=== PATIENT | female | born 1985 | race Caucasian/White ===

== ENCOUNTER 2017-05-21 00:47 | Emergency (ER) | payer OTHER ==
[~2017-05-21] VITALS: Ht 162.6 cm; Wt 49.5 kg
[2017-05-21] MEDS ORDERED: ALBU17IN2 INH (01:02)
[2017-05-21] MEDS ORDERED: SERT25TA PO (01:02)
[2017-05-21 02:50] VITALS: BP 137/67
== END 2017-05-21 02:53 | disposition home or self-care (01) ==
LOC: M ED 00:47
DX: S60.00XA Contusion of unspecified finger without damage to nail, initial encounter (principal); W22.8XXA Striking against or struck by other objects, initial encounter; Y92.099 Unspecified place in other non-institutional residence as the place of occurrence of the external cause; Y93.9 Activity, unspecified; Y99.9 Unspecified external cause status; Z79.899 Other long term (current) drug therapy; Z91.030 Bee allergy status; Z88.1 Allergy status to other antibiotic agents; Z91.018 Allergy to other foods

== ENCOUNTER → 2017-07-11 | Outpatient (CLI) | payer OTHER ==
[~2017-07-11] MED LIST: ALBU17IN2 INH; SERT25TA PO
[2017-07-11 12:13] LABS: ADD MANUAL DIFFER YES; MEAN CORPUSCULAR HEMOGLOBIN 21.2 pg (27.0-33.0); MEAN CORPUSCULAR HGB CONC 29.3 g/dl (32.0-36.5); MEAN CORPUSCULAR VOLUME 72.2 fl (80.0-96.0); PLATELET COUNT, AUTOMATED 195 k/mm3 (150-450); RED CELL DISTRIBUTION WIDTH 14.9 % (11.5-14.5); WHITE BLOOD COUNT 3.4 K/mm3 (4.0-10.0)
[2017-07-11 12:37] LABS: ALBUMIN 3.6 GM/DL (3.2-5.2); ALBUMIN/GLOBULIN RATIO 1.24 (1.00-1.93); ALKALINE PHOSPHATASE 65 U/L (45-117); ALT/SGPT 12 U/L (12-78); ANION GAP 8 MEQ/L (8-16); AST/SGOT 7 U/L (15-37); BILIRUBIN,TOTAL 0.2 MG/DL (0.2-1.0); BLOOD UREA NITROGEN 6 MG/DL (7-18); CALCIUM LEVEL 8.2 MG/DL (8.5-10.1); CARBON DIOXIDE LEVEL 25 MEQ/L (21-32); CHLORIDE LEVEL 109 MEQ/L (98-107); CHOLESTEROL LEVEL 150 MG/DL (<200); CREATININE FOR GFR 0.55 MG/DL (0.55-1.02); GLOMERULAR FILTRATION RATE > 60.0 (>60); GLUCOSE, FASTING 85 MG/DL (70-105); POTASSIUM SERUM 3.6 MEQ/L (3.5-5.1); SODIUM LEVEL 142 MEQ/L (136-145); TOTAL PROTEIN 6.5 GM/DL (6.4-8.2); TRIGLYCERIDES LEVEL 100 MG/DL (<150)
[2017-07-11 13:03] LABS: BASOPHILS 2 % (0-4); EOSINOPHILS 1 % (0-5)
[2017-07-11 13:04] LABS: ANISOCYTOSIS 2+; HYPOCHROMASIA 2+; MICROCYTOSIS 1+; OVALOCYTES 1+; POIKILOCYTOSIS 1+
== END ==
LOC: M LAB 11:24
PROVIDERS: ATTEND Nurse Practitioner Family
DX: Z72.0 Tobacco use (principal)

== ENCOUNTER 2018-02-18 23:48 | Emergency (ER) | payer OTHER ==
[2018-02-19 00:45] LABS: BASO % 1.2 % (0.0-1.0); EOS % 1.2 % (0.0-3.0); HEMATOCRIT 29.9 % (36.0-47.0); IMMATURE GRANULOCYTE % 0.3 % (0-3.0); LYMPH # 1.2 10^3/uL (1.5-4.5); LYMPH % 36.5 % (24.0-44.0); MEAN CORPUSCULAR HEMOGLOBIN 20.5 pg (27.0-33.0); MEAN CORPUSCULAR HGB CONC 30.1 g/dl (32.0-36.5); MONO # 0.3 10^3/uL (0.0-0.8); MONO % 9.3 % (0.0-5.0); NEUTROPHILS # 1.7 10^3/uL (1.8-7.7); NEUTROPHILS % 51.5 % (36.0-66.0); PLATELET COUNT, AUTOMATED 226 10^3/uL (150-450); RED CELL DISTRIBUTION WIDTH 16.6 % (11.5-14.5); WHITE BLOOD COUNT 3.3 10^3/uL (4.0-10.0)
[2018-02-19 00:57] LABS: PROTHROMBIN TIME 14.3 SECONDS (12.4-14.5)
[2018-02-19 00:58] LABS: PARTIAL THROMBOPLASTIN TIME 29.8 SECONDS (26.8-37.9)
[2018-02-19 01:00] LABS: CONTROL LINE HCG INT CTR LINE PRESENT; HCG, SERUM QUALITATIVE NEGATIVE (NEGATIVE)
[2018-02-19 01:10] LABS: ANION GAP 11 MEQ/L (8-16); BLOOD UREA NITROGEN 4 MG/DL (7-18); CALCIUM LEVEL 9.1 MG/DL (8.5-10.1); CARBON DIOXIDE LEVEL 24 MEQ/L (21-32); CHLORIDE LEVEL 109 MEQ/L (98-107); CPK CREATINE PHOSPHOKINASE 43 U/L (26-192); CREATININE FOR GFR 0.67 MG/DL (0.55-1.30); GLOMERULAR FILTRATION RATE > 60.0 (>60); GLUCOSE, FASTING 102 MG/DL (70-100); SODIUM LEVEL 144 MEQ/L (136-145); TROPONIN I < 0.02 NG/ML (< 0.10)
[2018-02-19 01:11] LABS: CK-MB VALUE MASS < 1.0 NG/ML (<3.6); MB/CK RELATIVE INDEX 2.32 (< OR =4)
[2018-02-19] MEDS: METOCLOPRAMIDE INJ 10MG/2ML VIAL (J2765) IV (01:53)
[2018-02-19] MEDS: POTASSIUM CHLORIDE 10 MEQ SR TABLET PO (01:54)
[2018-02-19] MEDS: NS 1,000 ML IV (01:54)
== END 2018-02-19 06:14 | disposition home or self-care (01) ==
LOC: M ED 23:48
DX: R20.0 Anesthesia of skin (principal); J45.909 Unspecified asthma, uncomplicated; F17.200 Nicotine dependence, unspecified, uncomplicated; Z91.030 Bee allergy status; Z88.8 Allergy status to other drugs, medicaments and biological substances; Z88.1 Allergy status to other antibiotic agents; Z91.018 Allergy to other foods
CPT/HCPCS: J2765

== ENCOUNTER 2018-04-05 22:23 | Emergency (ER) | payer OTHER ==
[2018-04-05] MEDS: ONDANSETRON 4 MG ORAL DISINTEGRATING TAB (Q0162 PER 1MG) PO (23:28)
== END 2018-04-06 00:32 | disposition home or self-care (01) ==
LOC: M ED 04-06 00:32
DX: F41.9 Anxiety disorder, unspecified (principal); R11.0 Nausea; F43.10 Post-traumatic stress disorder, unspecified; F17.200 Nicotine dependence, unspecified, uncomplicated
CPT/HCPCS: Q0162

== ENCOUNTER 2018-04-08 18:53 | Emergency (ER) | payer OTHER ==
[2018-04-08] MEDS: hydrOXYzine 50 MG TAB PO (20:37)
[2018-04-08 21:34] LABS: ANION GAP 5 MEQ/L (8-16); BLOOD UREA NITROGEN 7 MG/DL (7-18); CALCIUM LEVEL 8.8 MG/DL (8.5-10.1); CARBON DIOXIDE LEVEL 25 MEQ/L (21-32); CHLORIDE LEVEL 109 MEQ/L (98-107); CREATININE FOR GFR 0.63 MG/DL (0.55-1.30); GLOMERULAR FILTRATION RATE > 60.0 (>60); GLUCOSE, FASTING 100 MG/DL (70-100); SODIUM LEVEL 139 MEQ/L (136-145)
== END 2018-04-08 22:53 | disposition home or self-care (01) ==
LOC: M ED 18:53
DX: F41.1 Generalized anxiety disorder (principal); Z72.0 Tobacco use; Z79.899 Other long term (current) drug therapy; Z88.8 Allergy status to other drugs, medicaments and biological substances; Z88.1 Allergy status to other antibiotic agents; Z91.030 Bee allergy status; Z91.018 Allergy to other foods
CPT/HCPCS: 80048

== ENCOUNTER 2018-05-31 15:49 | Emergency (ER) | payer OTHER ==
[2018-05-31] MEDS: METOCLOPRAMIDE INJ 10MG/2ML VIAL (J2765) IV (16:45)
[2018-05-31] MEDS ORDERED: PROHANCE 279.3MG/ML 5ML VIAL (A9576) As Ordered (18:00)
== END 2018-05-31 21:25 | disposition home or self-care (01) ==
LOC: M ED 15:49
DX: G43.909 Migraine, unspecified, not intractable, without status migrainosus (principal); J44.9 Chronic obstructive pulmonary disease, unspecified; F43.10 Post-traumatic stress disorder, unspecified; F41.9 Anxiety disorder, unspecified; Z88.1 Allergy status to other antibiotic agents; Z88.8 Allergy status to other drugs, medicaments and biological substances; Z91.018 Allergy to other foods; Z91.030 Bee allergy status; F17.210 Nicotine dependence, cigarettes, uncomplicated
CPT/HCPCS: A9576

== ENCOUNTER 2018-07-09 13:15 | Emergency (ER) | payer OTHER | END 2018-07-09 13:56 | disposition home or self-care (01) | LOC: M ED 13:15 | DX: R51 Headache (principal); J30.9 Allergic rhinitis, unspecified; F32.9 Major depressive disorder, single episode, unspecified; G43.909 Migraine, unspecified, not intractable, without status migrainosus; F17.210 Nicotine dependence, cigarettes, uncomplicated; Z88.1 Allergy status to other antibiotic agents; Z88.5 Allergy status to narcotic agent; Z91.030 Bee allergy status | CPT/HCPCS: 99282 ==

== ENCOUNTER → 2018-07-17 | Outpatient (CLI) | payer OTHER ==
[2018-07-17 14:56] LABS: BASO % 0.7 % (0.0-1.0); EOS % 0.7 % (0.0-3.0); HEMATOCRIT 30.8 % (36.0-47.0); HEMOGLOBIN 8.8 g/dl (12.0-15.5); IMMATURE GRANULOCYTE % 0.5 % (0-3.0); LYMPH # 1.6 10^3/uL (1.5-4.5); LYMPH % 36.5 % (24.0-44.0); MEAN CORPUSCULAR HEMOGLOBIN 18.9 pg (27.0-33.0); MEAN CORPUSCULAR HGB CONC 28.6 g/dl (32.0-36.5); MEAN CORPUSCULAR VOLUME 66.2 fl (80.0-96.0); MONO # 0.5 10^3/uL (0.0-0.8); NEUTROPHILS # 2.2 10^3/uL (1.8-7.7); NEUTROPHILS % 50.6 % (36.0-66.0); PLATELET COUNT, AUTOMATED 227 10^3/uL (150-450); RED BLOOD COUNT 4.65 10^6/uL (4.00-5.40); RED CELL DISTRIBUTION WIDTH 17.2 % (11.5-14.5); WHITE BLOOD COUNT 4.4 10^3/uL (4.0-10.0)
[2018-07-17 15:26] LABS: ALBUMIN/GLOBULIN RATIO 1.18 (1.00-1.93); ALKALINE PHOSPHATASE 83 U/L (45-117); ALT/SGPT 18 U/L (12-78); ANION GAP 9 MEQ/L (8-16); AST/SGOT 11 U/L (7-37); BILIRUBIN,TOTAL 0.3 MG/DL (0.2-1.0); BLOOD UREA NITROGEN 6 MG/DL (7-18); CARBON DIOXIDE LEVEL 26 MEQ/L (21-32); CHLORIDE LEVEL 105 MEQ/L (98-107); CHOLESTEROL LEVEL 173 MG/DL (<200); CHOLESTEROL RISK RATIO 2.932 (<5); CREATININE FOR GFR 0.58 MG/DL (0.55-1.30); FERRITIN 2 NG/ML (8-252); FOLATE 5.4 NG/ML; FREE T4 0.97 NG/DL (0.76-1.46); GLOMERULAR FILTRATION RATE > 60.0 (>60); GLUCOSE, FASTING 81 MG/DL (70-100); HDL CHOLESTEROL 59 MG/DL (>40); IRON (FE) 20 UG/DL (50-170); LDL CHOLESTEROL 96 MG/DL (<100); NON-HDL-C 114 MG/DL; PERCENT SATURATION 3.8 % (13.2-45.0); POTASSIUM SERUM 3.8 MEQ/L (3.5-5.1); SODIUM LEVEL 140 MEQ/L (136-145); THYROID STIMULATING HORMONE 0.944 uIU/ML (0.358-3.740); TOTAL IRON BINDING CAPACITY 526 UG/DL (250-450); TOTAL PROTEIN 7.4 GM/DL (6.4-8.2); TRIGLYCERIDES LEVEL 89 MG/DL (<150)
[2018-07-20 00:07] LABS: D001-IgE D pteronyssinus <0.10 kU/L (Class 0); E001-IgE Cat Epith/Dander < 0.10 kU/L (Class 0); E005-IgE Dog Dander < 0.10 kU/L (Class 0); G002-IgE Bermuda Grass < 0.10 kU/L (Class 0); G008-IgE Kentucky Bluegrass < 0.10 kU/L (Class 0); M001-IgE Penicillium chrysogen < 0.10 kU/L (Class 0); M002 IgE Cladosporium herbaru < 0.10 kU/L (Class 0); M003 IgE Aspergillus fumigatu < 0.10 kU/L (Class 0); M006-IgE Alternaria alternata < 0.10 kU/L (Class 0); T001-IgE Maple/Box Elder < 0.10 kU/L (Class 0); T003-IgE Common Silver Birch < 0.10 kU/L (Class 0); T006-IgE Cedar, Mountain < 0.10 kU/L (Class 0); T007-IgE Oak, White < 0.10 kU/L (Class 0); T008-IgE Elm, American < 0.10 kU/L (Class 0); T015-IgE Ash, White < 0.10 kU/L (Class 0); T041-IgE Hickory, White < 0.10 kU/L (Class 0); T070-IgE White Mulberry < 0.10 kU/L (Class 0); W001-IgE Ragweed, Short < 0.10 kU/L (Class 0); W009-IgE Plantain, English < 0.10 kU/L (Class 0); W014-IgE Pigweed, Rough < 0.10 kU/L (Class 0); W018-IgE Sheep Sorrel < 0.10 kU/L (Class 0)
== END ==
LOC: M LAB 14:06
DX: J45.20 Mild intermittent asthma, uncomplicated (principal); J30.9 Allergic rhinitis, unspecified; D64.9 Anemia, unspecified; E87.6 Hypokalemia; F41.9 Anxiety disorder, unspecified; Z13.6 Encounter for screening for cardiovascular disorders; R20.0 Anesthesia of skin
CPT/HCPCS: 82746

== ENCOUNTER 2018-07-20 18:11 | Emergency (ER) | payer OTHER ==
[2018-07-20] MEDS: BENZONATATE 100 MG CAP PO (21:00)
== END 2018-07-20 21:08 | disposition home or self-care (01) ==
LOC: M ED 18:11
DX: J20.8 Acute bronchitis due to other specified organisms (principal); J45.909 Unspecified asthma, uncomplicated; E07.9 Disorder of thyroid, unspecified; G43.909 Migraine, unspecified, not intractable, without status migrainosus; F17.210 Nicotine dependence, cigarettes, uncomplicated
CPT/HCPCS: 99282

== ENCOUNTER 2018-10-19 05:10 | Emergency (ER) | payer OTHER | END 2018-10-19 06:30 | disposition home or self-care (01) | LOC: M ED 05:10 | DX: J31.0 Chronic rhinitis (principal); F17.200 Nicotine dependence, unspecified, uncomplicated; F32.9 Major depressive disorder, single episode, unspecified; G43.909 Migraine, unspecified, not intractable, without status migrainosus | CPT/HCPCS: 99282 ==

== ENCOUNTER → 2018-12-04 | Outpatient (REF) | payer OTHER ==
[~2018-12-04] MED LIST changes: +ACE65ERTAB PO; +AZIT-12; +CIPR-249 PO; +EPIP0.3I2 IM; +FERR325T3 PO; +FLON1SPR NARES; +HYDR50TA70 PO; +IBUP-1022 PO; +MIRA3350 PO; +MUCI600T37 PO; +PROP10TA56 PO; +SERT50TA PO; +SUDA30TA8 PO; +SUMA25TA3; +TESS100C PO; +ZOFR4TAB14 PO
[2018-12-04 16:19] LABS: BASO % 0.5 % (0.0-1.0); EOS # 0.1 10^3/uL (0.0-0.50); EOS % 1.8 % (0.0-3.0); HEMATOCRIT 33.3 % (36.0-47.0); HEMOGLOBIN 9.6 g/dl (12.0-15.5); LYMPH # 1.3 10^3/uL (1.5-4.5); LYMPH % 32.8 % (24.0-44.0); MEAN CORPUSCULAR HEMOGLOBIN 20.3 pg (27.0-33.0); MEAN CORPUSCULAR HGB CONC 28.8 g/dl (32.0-36.5); MEAN CORPUSCULAR VOLUME 70.3 fl (80.0-96.0); MONO # 0.4 10^3/uL (0.0-0.8); MONO % 11.1 % (0.0-5.0); NEUTROPHILS # 2.1 10^3/uL (1.8-7.7); NEUTROPHILS % 53.5 % (36.0-66.0); PLATELET COUNT, AUTOMATED 203 10^3/uL (150-450); RED BLOOD COUNT 4.74 10^6/uL (4.00-5.40); WHITE BLOOD COUNT 3.9 10^3/uL (4.0-10.0)
[2018-12-04 16:28] LABS: ALBUMIN 4.1 GM/DL (3.2-5.2); ALT/SGPT 16 U/L (12-78); BILIRUBIN,TOTAL 0.2 MG/DL (0.2-1.0); BLOOD UREA NITROGEN 6 MG/DL (7-18); CALCIUM LEVEL 8.9 MG/DL (8.5-10.1); CARBON DIOXIDE LEVEL 27 MEQ/L (21-32); CHLORIDE LEVEL 105 MEQ/L (98-107); CREATININE FOR GFR 0.63 MG/DL (0.55-1.30); FERRITIN 2 NG/ML (8-252); GLOMERULAR FILTRATION RATE > 60.0 (>60); GLUCOSE, FASTING 96 MG/DL (70-100); IRON (FE) 18 UG/DL (50-170); PERCENT SATURATION 3.6 % (13.2-45.0); POTASSIUM SERUM 3.7 MEQ/L (3.5-5.1); SODIUM LEVEL 139 MEQ/L (136-145); TOTAL IRON BINDING CAPACITY 500 UG/DL (250-450); TOTAL PROTEIN 7.1 GM/DL (6.4-8.2)
== END ==
LOC: M SFHCPLAZ 14:05
PROVIDERS: ATTEND Physician Assistant Medical
DX: D64.9 Anemia, unspecified (principal); E87.6 Hypokalemia

== ENCOUNTER 2019-03-22 22:09 | Emergency (ER) | payer OTHER ==
[~2019-03-22] VITALS: Ht 162.6 cm; Wt 50.9 kg
[~2019-03-22 22:09] MED LIST changes: +SERT-141 PO; -SERT25TA PO; +SERT25TA85 PO; -SERT50TA PO
[2019-03-22] MEDS ORDERED: GABA-1171 PO (22:20)
[2019-03-23] MEDS ORDERED: PRED20TA PO (00:33)
[2019-03-23 00:45] VITALS: BP 135/69
[2019-03-23] MEDS ORDERED: MAGNESIUM CITRATE 300 ML BTL PO ONE (00:45)
[2019-03-23] MEDS ORDERED: PROAAER10 INH (05:36)
[2019-03-23] MEDS ORDERED: EPIP0.3I2 IM (05:36)
[2019-03-23] MEDS ORDERED: FLUT50SP33 (05:36)
--- NOTE | 2019-03-23 08:01 | REP ---
Clinical: Constipation. Technique: Two supine views of the abdomen and pelvis. Findings: Bowel gas pattern is nonspecific although mild fecal stasis cannot be excluded. No organomegaly. No abnormal calcifications. Skeletal structures are intact. Fiche clips identified in the pelvis along with phleboliths. Impression: Mild fecal stasis. Electronically Signed by Vitor Oconnor MD 03/23/2019 07:52 A
[2019-03-24] MEDS ORDERED: FERR325T18 PO (16:55)
== END 2019-03-23 00:47 | disposition home or self-care (01) ==
LOC: M ED 22:09
DX: G35 Multiple sclerosis (principal); K59.00 Constipation, unspecified; J45.909 Unspecified asthma, uncomplicated; F17.200 Nicotine dependence, unspecified, uncomplicated; Z91.030 Bee allergy status

== ENCOUNTER 2019-03-23 02:49 | Observation (INO) | payer OTHER ==
[~2019-03-23] VITALS: Ht 162.6 cm; Wt 50.9 kg
[~2019-03-23 02:49] MED LIST changes: +GABA-1171 PO; +PRED20TA PO
[2019-03-23 03:53] LABS: BASO % 0.5 % (0.0-1.0); EOS % 0.5 % (0.0-3.0); HEMATOCRIT 28.7 % (36.0-47.0); HEMOGLOBIN 8.6 g/dl (12.0-15.5); LYMPH # 0.8 10^3/uL (1.5-4.5); LYMPH % 12.8 % (24.0-44.0); MEAN CORPUSCULAR HEMOGLOBIN 21.2 pg (27.0-33.0); MEAN CORPUSCULAR VOLUME 70.9 fl (80.0-96.0); MONO # 0.5 10^3/uL (0.0-0.8); MONO % 8.3 % (0.0-5.0); NEUTROPHILS % 77.6 % (36.0-66.0); PLATELET COUNT, AUTOMATED 217 10^3/uL (150-450); RED BLOOD COUNT 4.05 10^6/uL (4.00-5.40); WHITE BLOOD COUNT 6.5 10^3/uL (4.0-10.0)
[2019-03-23 04:01] LABS: INR 1.04; PROTHROMBIN TIME 13.7 SECONDS (12.1-14.4)
[2019-03-23 04:02] LABS: PARTIAL THROMBOPLASTIN TIME 30.3 SECONDS (25.4-37.6)
[2019-03-23 04:11] LABS: BLOOD UREA NITROGEN 9 MG/DL (7-18); CALCIUM LEVEL 9.4 MG/DL (8.5-10.1); CARBON DIOXIDE LEVEL 25 MEQ/L (21-32); CHLORIDE LEVEL 108 MEQ/L (98-107); CPK CREATINE PHOSPHOKINASE 52 U/L (26-192); GLOMERULAR FILTRATION RATE > 60.0 (>60); GLUCOSE, FASTING 112 MG/DL (70-100); MB/CK RELATIVE INDEX 3.85 (< OR =4); POTASSIUM SERUM 3.5 MEQ/L (3.5-5.1); SODIUM LEVEL 141 MEQ/L (136-145); TROPONIN I < 0.02 NG/ML (< 0.10)
--- NOTE | 2019-03-23 04:41 | REPVR ---
EXAM: CT Head Without Contrast EXAM DATE/TIME: 03/23/2019 3:11 AM CLINICAL HISTORY: 33 years old, female; Signs and symptoms; Other: CVA? ; Additional info: CVA - nursing interventions must not delay CT TECHNIQUE: Imaging protocol: Axial computed tomography images of the head without contrast. Radiation optimization: All CT scans at this facility use at least one of these dose optimization techniques: automated exposure control; mA and/or kV adjustment per patient size (includes targeted exams where dose is matched to clinical indication); or iterative reconstruction. COMPARISON: CT Head without contrast 02/19/2018 12:14 AM FINDINGS: Brain: Normal. No hemorrhage. Unremarkable white matter. No mass effect. Ventricles: Normal. No ventriculomegaly. Bones/joints: Unremarkable. No acute fracture. Sinuses: Visualized sinuses are unremarkable. No fluid levels. Mastoid air cells: Visualized mastoid air cells are well aerated. No mastoid effusion. Soft tissues: Unremarkable. IMPRESSION: No acute intracranial abnormality. Electronically signed by: Shell Sheridan On 03/23/2019 04:41:05 AM
[2019-03-23] MEDS ORDERED: EPIP0.3I2 IM (05:36)
[2019-03-23] MEDS ORDERED: FLUT50SP33 (05:36)
[2019-03-23] MEDS ORDERED: PROAAER10 INH (05:36)
[2019-03-23] MEDS ORDERED: LORazepam 2 MG/ML VIAL (J2060) IV STA (06:26)
--- NOTE | 2019-03-23 07:33 | ECGEPIP ---
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
--- NOTE | 2019-03-23 08:03 | REP ---
Clinical: Possible acute cerebrovascular accident . Comparison: 07/21/2012 . Findings: The mediastinum and cardiac silhouette are stable and within normal limits for portable technique. The lung obando are clear without acute consolidation, effusion, or pneumothorax. Skeletal structures are intact. Impression: No acute cardiopulmonary process appreciated. Electronically Signed by Vitor Oconnor MD 03/23/2019 07:55 A
[2019-03-23] MEDS ORDERED: PROHANCE 279.3MG/ML 5ML VIAL (A9576) As Ordered ONE (10:39)
--- NOTE | 2019-03-23 12:31 | REP ---
CERVICAL SPINE WITHOUT AND WITH CONTRAST: HISTORY: Left arm and leg numbness. CONTRAST: ProHance 10 mL COMPARISON: 05/31/2018 A disc bulge is present at the C6-7 level. There is minimal effacement of the thecal sac without spinal cord compression. The C6 neural foramina are patent. There is no other disc bulge or herniation. The remaining neural foramina are patent. The spinal cord is normal in signal intensity. There is no abnormal enhancement. The cerebellar tonsils extend 5 mm inferior through the foramen magnum consistent with cerebellar tonsillar ectopia. There is no syrinx. IMPRESSION: 1. Disc bulge at the C6-7 level without spinal cord compression. 2. Cerebellar tonsillar ectopia. There is no change compared to the previous study. Electronically Signed by Vitaly Contreras MD 03/23/2019 12:37 P
--- NOTE | 2019-03-23 12:34 | REP ---
MR THORACIC SPINE WITHOUT AND WITH CONTRAST: HISTORY: Left arm and leg numbness. CONTRAST: ProHance 10 mL There is no disc bulge or herniation. The spinal canal and neural foramina are patent. The spinal cord is normal in signal intensity. There is no abnormal enhancement. Normal signal intensity is present in the thoracic vertebral bodies. IMPRESSION: There is no disc bulge or herniation. Electronically Signed by Vitaly Contreras MD 03/23/2019 12:37 P
--- NOTE | 2019-03-23 12:52 | REP ---
MRI BRAIN WITHOUT AND WITH CONTRAST: HISTORY: Left sided weakness. CONTRAST: ProHance 10 mL. COMPARISON: 05/31/2018. A single punctate focus of increased signal intensity on T2-weighted images is present in the subcortical white matter of the left parietal lobe. There is no intraparenchymal hemorrhage, infarct, mass or midline shift. There is no abnormal enhancement. The ventricular system is normal in appearance. There is no extracerebral collection. The cerebellar tonsils extend 5 mm inferior through the foramen magnum consistent with cerebellar tonsillar ectopia. There is no syrinx in the visualized cervical spinal cord. The visualized sinuses are clear. IMPRESSION: 1. There is a single punctate focus of increased signal intensity in the subcortical white matter of the left parietal lobe. This is a nonspecific finding. 2. Cerebellar tonsillar ectopia. Electronically Signed by Vitaly Contreras MD 03/23/2019 01:04 P
--- NOTE | 2019-03-23 13:37 | HPE ---
DATE OF ADMISSION: 03/23/2019 PRIMARY CARE PROVIDER: MARGARET Mendoza/Dr. Aldo Orantes CHIEF COMPLAINT: Numbness in her legs, "my MS is acting up." HISTORY: Cici Sheridan is a 33-year-old who believes she has multiple sclerosis. This is based upon a CT scan of the brain that was done 01/2018 at [facility], interpreted as showing periventricular white matter changes. She has never had a lumbar puncture done, nor MRI evidence of MS. She has intermittent episodes where both feet will become numb or her left arm will become numb, then the symptoms will resolve. She apparently has been seen by the neurology group locally, but did not keep appointments. She apparently had a neurology appointment in February for the [place] region, she did not keep that appointment. On February 19, 2018 she was seen in the ER for left sided numbness. An MRI scan showed nonspecific changes. No specific signs of MS. MRI of the cervical spine showed some bulging disc with cord compression. She returned for an MRI of the brain 05/2018 that showed a single punctate focus of increased signal density, subcortical white matter left parietal lobe which was felt to be nonspecific finding. Cerebellar ectopia once again noted. Today she had MRIs of the thoracic spine and cervical spine, which are both unremarkable. An MRI of the brain, which according to Dr. Contreras showed no specific findings and his feeling was "this is definitely not MS." PAST MEDICAL HISTORY: Her past medical history shows: General anxiety disorder. Posttraumatic stress disorder (PTSD). Panic disorder. History of asthma. Tobacco abuse. Migraines headaches. "Tethered cord." She has had four sections and finally tubal ligation 02/2015. FAMILY HISTORY: Father diagnosed with hypertension. Grandmother with breast and lung cancer. Grandfather with myocardial infarction ([place]) times two. MEDICATIONS: - albuterol on an as needed basis - EpiPen as needed for bee stings - gabapentin 100 mg three times a day SOCIAL HISTORY: Smokes a pack a day. Denies alcohol use. Denes recreational drug use. She is single. Disabled due to PTSD. ALLERGIES: 1. ZITHROMAX caused increased anxiety. 2. TORSEMIDE caused anaphylaxis. REVIEW OF SYSTEMS: Legs feel numb in a nonspecific fashion but there is no weakness. No visual disturbance, or specific coordination problems. She does have frequent headaches. No cough, wheeze or hemoptysis. No fever, chills, night sweats. No chest pain. PHYSICAL EXAMINATION: Vital signs per flow sheet. GENERAL APPEARANCE: Chronically ill, looks much older than stated age. HEENT: Excoriated lesions on the face. Pupils equal and reactive light. Tympanic membranes and oropharynx benign. No facial droop or weakness. LUNGS: Clear. HEART: Regular without murmur. ABDOMEN: Soft, nontender, no masses. EXTREMITIES: Normal strength in the arms and legs. Normal reflexes. Normal sensation to light touch in the arms and legs. I did not test her gait. LABS: MRI of brain, cervical spine, and thoracic spine showed no significant abnormalities. Per radiologist, "this is not MS." White count is 6.5, hemoglobin 8.6. She is chronically anemic. She is at her baseline. Platelets 217. IMPRESSION: 1. Numbness in both legs. Etiology is unknown. She does not have findings on MRI scans consistent with multiple sclerosis (MS). Her symptoms are vaguely described and therefore are hard to further characterized. Discussed the case withy Dr. Sandra. He will see the patient in consultation. Perhaps a lumbar puncture looking for oligoclonal bands would help settle the issue, but at this point, there is really nothing to support the diagnosis of MS other than one radiology report from [facility] based on a CT scan. Physical therapy has been ordered. Consider psychiatry consult. 2. Chronic anxiety. She is on no specific medication for this. Consideration could be given starting an SSRI. 3. Iron deficiency anemia. She had this worked up recently and she had iron studies done 07/2018 which showed iron deficient, studies done 12/2018 she was just as iron deficient then. I do not see where she is on an iron supplement so we will start one. She might need intravenous iron.
[2019-03-23 14:35] VITALS: BP 125/60
[2019-03-23 16:00] VITALS: BP 116/64
[2019-03-23 18:25] LABS: THYROID STIMULATING HORMONE 1.25 uIU/ML (0.358-3.740)
[2019-03-23 20:00] VITALS: BP 120/63
[2019-03-23] MEDS: FERROUS SULFATE 325MG TAB PO SCH (20:09)
[2019-03-23] MEDS ORDERED: ENOXAPARIN 40 MG/0.4 ML SYRINGE (J1650) SC SCH (21:00)
[2019-03-24 00:15] VITALS: BP 105/63
--- NOTE | 2019-03-24 00:22 | CR ---
DATE OF CONSULTATION: 03/23/2019 REFERRING PHYSICIAN: Dr. Ernesto Malcolm REASON FOR CONSULTATION: Numbness in legs and left arm. HISTORY OF PRESENT ILLNESS: Cici Sheridan is a 33-year-old woman who believes that she has multiple sclerosis and came to [facility] stating that her MS was acting up. The patient was seen in our office in 2007 and had unexplained episodes of left-sided numbness and weakness at that time. She did not come back for followup in the last 11 years, even though she was scheduled in 2018. She has never been evaluated or diagnosed by neurology for multiple sclerosis. I reviewed her multiple MRI scans of the brain over the years at [facility] from 2006, 2017 and 2019. None of these scans have ever shown evidence of multiple sclerosis. Her scan in May 2018 and today showed single nonspecific white matter focus and 5 mm cerebellar tonsillar ectopia. The patient states that her MRI of brain in [facility] seemed to suggest that she may have multiple sclerosis. The patient has never had an evaluation by neurologist for this purpose. She never had a spinal tap. The patient states that she has episodes of numbness, tingling of her legs which occur twice a year, lasting for 10-15 minutes. In these episodes, she feels numbness, tingling in her thighs which goes down to her toes. Last night and early this morning, her left arm also became numb for 10-15 minutes. She became concerned and came to the emergency department and stated that her MS was acting up. She has off-and-on chronic neck and back pain which ranges between 4-5 out of 10 in intensity. She states that she has migraines twice a year, which are 7 out of 10 in intensity, bilateral temporal in location, pressure-like in character, lasting for several hours. She denies any weakness of arms and legs. She denies any seizures, dysphagia, dysarthria, diplopia or urinary incontinence. DIAGNOSTIC STUDIES: Her MRI scan of brain are summarized above from 2006, 2018 times two and 2019. MRI cervical and thoracic spine showed only disc bulge at C6-C7. MRI thoracic spine was normal. MRI brain, cervical and thoracic spine today were done with and without contrast. MRI scan of lumbosacral spine and CT scan of lumbosacral spine showed degenerative disc disease at L5-S1 level. PAST MEDICAL HISTORY: Generalized anxiety disorder, post-traumatic stress disorder, panic disorder, asthma, migraines, tethered cord, four sections, tubal ligation. FAMILY HISTORY: Father with a history of hypertension. Grandmother with a history of breast and lung cancer. Grandfather had myocardial infarction. HOME MEDICATIONS: - gabapentin 100 mg by mouth three times a day - albuterol inhaler as needed - EpiPen as needed SOCIAL HISTORY: She smokes one pack per day. She denies alcohol or illicit drugs. She states that she is disabled due to PTSD. ALLERGIES: TORSEMIDE, ZITHROMAX. REVIEW OF SYSTEMS: All systems were reviewed and found to be noncontributory except as mentioned in the history present illness. PHYSICAL EXAMINATION: Temperature 99.3, pulse 85, respiratory rate 18, blood pressure 116/64, 99% saturation on room air. Heart: Regular rate and rhythm. Lungs: Clear to the auscultation. Abdomen: Soft and nondistended. No pedal edema. No musculoskeletal abnormalities. No rash. No signs of meningeal irritation. No tremor, dysmetria or ataxia. Neurological Examination: The patient is awake, alert, oriented to place, person and time. Normal speech, comprehension and repetition. Extraocular muscles are intact. No facial weakness. Tongue and uvula are midline. Recent and distant memory is intact. There is no nystagmus. 5/5 strength in all four extremities. Deep tendon reflexes are 2+ throughout. Normal sensation throughout. LABORATORY STUDIES: Hemoglobin 8.6 with normal basic metabolic profile. ASSESSMENT: 1. Paresthesias of legs and left arm. 2. History of migraines and history of unexplained left hemiparesis in 2007. 3. Single nonspecific T2 focus in left parietal head region, which can be a manifestation of migraines. 4. No radiological evidence of multiple sclerosis. 5. Mild disc bulge at C6-C7 and mild degenerative disc disease at L5-S1 levels. 6. Chronic neck and back pain. PLAN: 1. Check vitamin B12, vitamin B1, serum copper, TSH, etc. 2. Increase gabapentin to 300 mg by mouth twice a day or three times a day if her sensory paresthesias persist. 3. Close followup with psychiatry for her generalized anxiety disorder, post-traumatic stress disorder and panic disorder, which may have contribution to her symptoms as well.
[2019-03-24 04:21] VITALS: BP 132/58
[2019-03-24 08:00] VITALS: BP 113/55
[2019-03-24] MEDS: FERROUS SULFATE 325MG TAB PO SCH (09:57)
[2019-03-24 12:00] VITALS: BP 110/59
[2019-03-24 16:00] VITALS: BP 105/53
[2019-03-24] MEDS ORDERED: FERR325T18 PO (16:55)
--- NOTE | 2019-03-25 10:58 | DSES ---
DATE OF ADMISSION: 03/23/2019 DATE OF DISCHARGE: 03/24/2019 DISCHARGE DIAGNOSES: 1. Distal paresthesia secondary to anxiety disorder/PTSD +/- hyperventilation with secondary chronic anemia. 2. Chronic iron deficiency anemia secondary to menorrhagia. 3. History of migraine headache with hemiplegia. Patient was admitted with concern for recurrent numbness in bilateral lower extremities. She retained a working diagnosis of MS from a CAT scan that was done at [facility] in January 2018. Cervical thoracic and brain MRI with and without contrast were done that were unremarkable except for a C6-7 bulge without compression and single punctate T2 intensity in left parietal lobe. While hospitalized she was seen by Dr. Sandra, neurologist in consultation who also felt her paresthesias were related to her generalized anxiety disorder serology and vitamin workup were checked although this is less likely. The patient states that since she was reassured that this was not MS she has not had any recurrence and she herself admits she feels symptoms are related to anxiety. Patient was discharged to home on ferrous sulfate 325 by mouth twice a day liquid and her home dose of fluticasone epinephrine as needed and albuterol as needed. She will followup with her primary care physician Naya Lopez in 5-7 days, at that point we will need to consider options for her menorrhagia with secondary severe anemia and consider treatment for LINDA with secondary paresthesias.
== END 2019-03-24 17:35 | disposition home or self-care (01) ==
LOC: M ED 02:49 → INTOOBSV 08:32 → M ED INP 08:32 → M PED 15:03
PROVIDERS: ADMIT Family Medicine; ATTEND Family Medicine
DX: R20.2 Paresthesia of skin (principal); F41.1 Generalized anxiety disorder; F41.0 Panic disorder [episodic paroxysmal anxiety]; F43.10 Post-traumatic stress disorder, unspecified; D50.9 Iron deficiency anemia, unspecified; N92.0 Excessive and frequent menstruation with regular cycle; Z86.69 Personal history of other diseases of the nervous system and sense organs; F17.210 Nicotine dependence, cigarettes, uncomplicated; Z88.1 Allergy status to other antibiotic agents; Z88.8 Allergy status to other drugs, medicaments and biological substances
CPT/HCPCS: 36415; 70450; 70553; 71045; 72156; 72157; 80048; 82525; 82550; 82553; 82607; 82728; 84425; 84443; 85025; 85610; 85730; 86850; 86900; 86901; 93005; 93041; 94760; 96372; 96374; 99285; A9576; J1650; J2060

== ENCOUNTER → 2019-06-06 | Outpatient (CLI) | payer OTHER ==
[~2019-06-06] MED LIST changes: +FERR325T18 PO; +FLUT50SP33; +PROAAER10 INH
[2019-06-06 15:24] LABS: BASO % 0.6 % (0.0-1.0); EOS % 1.2 % (0.0-3.0); HEMATOCRIT 31.8 % (36.0-47.0); HEMOGLOBIN 9.1 g/dl (12.0-15.5); LYMPH % 29.2 % (24.0-44.0); MEAN CORPUSCULAR HEMOGLOBIN 20.6 pg (27.0-33.0); MEAN CORPUSCULAR HGB CONC 28.6 g/dl (32.0-36.5); MEAN CORPUSCULAR VOLUME 71.9 fl (80.0-96.0); MONO # 0.4 10^3/uL (0.0-0.8); MONO % 11.5 % (0.0-5.0); NEUTROPHILS # 1.9 10^3/uL (1.8-7.7); NEUTROPHILS % 57.2 % (36.0-66.0); PLATELET COUNT, AUTOMATED 194 10^3/uL (150-450); RED BLOOD COUNT 4.42 10^6/uL (4.00-5.40); WHITE BLOOD COUNT 3.4 10^3/uL (4.0-10.0)
[2019-06-06 15:51] LABS: ALBUMIN 3.8 GM/DL (3.2-5.2); ALT/SGPT 15 U/L (12-78); BILIRUBIN,TOTAL 0.3 MG/DL (0.2-1.0); BLOOD UREA NITROGEN 6 MG/DL (7-18); CARBON DIOXIDE LEVEL 27 MEQ/L (21-32); CHLORIDE LEVEL 107 MEQ/L (98-107); CREATININE FOR GFR 0.61 MG/DL (0.55-1.30); FERRITIN 3 NG/ML (8-252); GLOMERULAR FILTRATION RATE > 60.0 (>60); GLUCOSE, FASTING 80 MG/DL (70-100); IRON (FE) 21 UG/DL (50-170); PERCENT SATURATION 4.6 % (13.2-45.0); POTASSIUM SERUM 4.1 MEQ/L (3.5-5.1); SODIUM LEVEL 140 MEQ/L (136-145); TOTAL IRON BINDING CAPACITY 455 UG/DL (250-450); TOTAL PROTEIN 6.8 GM/DL (6.4-8.2)
[2019-06-06 15:59] LABS: HEMOGLOBIN A1c 4.9 %
[2019-06-07 11:07] LABS: H PYLORI QUALITATIVE IgG NEGATIVE (NEGATIVE)
== END ==
LOC: M LAB 14:45
PROVIDERS: ATTEND Physician Assistant Medical
DX: D64.9 Anemia, unspecified (principal); R73.9 Hyperglycemia, unspecified

== ENCOUNTER 2019-06-26 | Emergency (ER) | payer OTHER ==
[~2019-06-26] VITALS: Ht 162.6 cm; Wt 53.2 kg
[2019-06-26 00:01] VITALS: BP 147/75
== END 2019-06-26 01:45 | disposition left against medical advice (07) ==
LOC: M ED
DX: Z53.21 Procedure and treatment not carried out due to patient leaving prior to being seen by health care provider (principal)

== ENCOUNTER 2019-06-26 04:02 | Emergency (ER) | payer OTHER ==
[~2019-06-26] VITALS: Ht 162.6 cm; Wt 53.2 kg
[2019-06-26 04:03] VITALS: BP 130/81
[2019-06-26] MEDS ORDERED: LORazepam 2 MG/ML VIAL (J2060) IM STA (04:40)
== END 2019-06-26 05:32 | disposition home or self-care (01) ==
LOC: M ED 04:02
DX: F41.0 Panic disorder [episodic paroxysmal anxiety] (principal); F43.10 Post-traumatic stress disorder, unspecified; F17.210 Nicotine dependence, cigarettes, uncomplicated; Z79.899 Other long term (current) drug therapy; Z91.030 Bee allergy status
CPT/HCPCS: 96372; 99283; J2060

== ENCOUNTER 2019-07-24 15:25 | Emergency (ER) | payer OTHER ==
[~2019-07-24] VITALS: Ht 162.6 cm; Wt 53.2 kg
[2019-07-24] MEDS ORDERED: DEBR6.5S4 AD (17:19)
[2019-07-24 17:29] VITALS: BP 103/55
== END 2019-07-24 17:31 | disposition home or self-care (01) ==
LOC: M ED 15:25
DX: H61.23 Impacted cerumen, bilateral (principal); J06.9 Acute upper respiratory infection, unspecified; I10 Essential (primary) hypertension; J45.909 Unspecified asthma, uncomplicated; G35 Multiple sclerosis; E07.9 Disorder of thyroid, unspecified; F33.9 Major depressive disorder, recurrent, unspecified; F41.9 Anxiety disorder, unspecified; G43.909 Migraine, unspecified, not intractable, without status migrainosus; F10.10 Alcohol abuse, uncomplicated; F17.210 Nicotine dependence, cigarettes, uncomplicated

== ENCOUNTER 2019-10-31 02:30 | Emergency (ER) | payer OTHER ==
[~2019-10-31] VITALS: Ht 162.6 cm; Wt 54.1 kg
[~2019-10-31 02:30] MED LIST changes: +DEBR6.5S4 AD
[2019-10-31 02:31] VITALS: BP 133/69
[2019-10-31] MEDS ORDERED: KETOROLAC 60 MG/2 ML VIAL (J1885) IM ONE (03:15)
[2019-10-31] MEDS ORDERED: ONDANSETRON 4 MG ORAL DISINTEGRATING TAB (Q0162 PER 1MG) PO ONE (03:15)
== END 2019-10-31 03:23 | disposition home or self-care (01) ==
LOC: M ED 02:30
DX: R51 Headache (principal); Z91.030 Bee allergy status; F17.210 Nicotine dependence, cigarettes, uncomplicated
CPT/HCPCS: 96372; 99282; J1885; Q0162

== ENCOUNTER 2019-12-15 04:30 | Emergency (ER) | payer OTHER ==
[~2019-12-15] VITALS: Ht 162.6 cm; Wt 55.5 kg
[2019-12-15] MEDS ORDERED: ONDANSETRON 4 MG ORAL DISINTEGRATING TAB (Q0162 PER 1MG) PO ONE (06:15)
[2019-12-15] MEDS ORDERED: KETOROLAC 60 MG/2 ML VIAL (J1885) IM ONE (06:15)
[2019-12-15 06:58] VITALS: BP 108/60
== END 2019-12-15 06:59 | disposition home or self-care (01) ==
LOC: M ED 04:30
DX: R51 Headache (principal); R06.7 Sneezing; R11.0 Nausea; J45.909 Unspecified asthma, uncomplicated; F17.210 Nicotine dependence, cigarettes, uncomplicated; Z91.030 Bee allergy status
CPT/HCPCS: 96372; 99283; J1885; Q0162

== ENCOUNTER 2020-02-24 20:19 | Emergency (ER) | payer OTHER ==
[~2020-02-24] VITALS: Ht 162.6 cm; Wt 56.9 kg
[2020-02-24] MEDS ORDERED: SERT50TA29 (20:24)
[2020-02-24] MEDS ORDERED: KETOROLAC 60 MG/2 ML VIAL IM ONE (21:00)
[2020-02-24] MEDS ORDERED: ONDANSETRON 4 MG ORAL DISINTEGRATING TAB PO ONE (21:00)
[2020-02-24] MEDS ORDERED: CYCLOBENZAPRINE 5MG TABLET PO ONE (21:00)
[2020-02-24] MEDS ORDERED: CYCL5TAB PO (21:50)
[2020-02-24] MEDS ORDERED: KETO10TAB PO (21:50)
[2020-02-24] MEDS ORDERED: ONDA4TAB6 PO (21:50)
[2020-02-24 21:52] VITALS: BP 110/58
== END 2020-02-24 22:00 | disposition home or self-care (01) ==
LOC: M ED 20:19
DX: G43.909 Migraine, unspecified, not intractable, without status migrainosus (principal); M62.838 Other muscle spasm; F17.200 Nicotine dependence, unspecified, uncomplicated; J45.909 Unspecified asthma, uncomplicated; F41.9 Anxiety disorder, unspecified; F32.9 Major depressive disorder, single episode, unspecified; Z91.030 Bee allergy status; Z79.899 Other long term (current) drug therapy
CPT/HCPCS: 99283; J1885; Q0162

== ENCOUNTER → 2020-10-12 | Outpatient (CLI) | payer OTHER ==
[~2020-10-12] MED LIST changes: +CYCL5TAB PO; +KETO10TAB PO; +ONDA4TAB6 PO; +SERT50TA29
[2020-10-12 13:44] LABS: HEMATOCRIT 30.3 % (36.0-47.0); HEMOGLOBIN 8.1 g/dl (12.0-15.5); MEAN CORPUSCULAR HEMOGLOBIN 17.9 pg (27.0-33.0); MEAN CORPUSCULAR HGB CONC 26.7 g/dl (32.0-36.5); MEAN CORPUSCULAR VOLUME 66.9 fl (80.0-96.0); PLATELET COUNT, AUTOMATED 180 10^3/uL (150-450); RED BLOOD COUNT 4.53 10^6/uL (4.00-5.40); WHITE BLOOD COUNT 4.1 10^3/uL (4.0-10.0)
[2020-10-12 14:26] LABS: CHOLESTEROL RISK RATIO 3.021 (<5); FREE T4 0.99 NG/DL (0.76-1.46); THYROID STIMULATING HORMONE 0.953 uIU/ML (0.358-3.740)
[2020-10-13 11:58] LABS: FOLATE 4.7 NG/ML
== END ==
LOC: M LAB 13:16
PROVIDERS: ATTEND Physician Assistant
DX: D50.0 Iron deficiency anemia secondary to blood loss (chronic) (principal); Z13.1 Encounter for screening for diabetes mellitus; Z13.220 Encounter for screening for lipoid disorders; R29.898 Other symptoms and signs involving the musculoskeletal system

== ENCOUNTER → 2020-12-28 | Outpatient (CLI) | payer OTHER ==
[2020-12-28 13:50] LABS: BASO % 0.5 % (0.0-1.0); EOS # 0.1 10^3/uL (0.0-0.5); EOS % 1.9 % (0.0-3.0); HEMATOCRIT 32.6 % (36.0-47.0); HEMOGLOBIN 8.7 g/dl (12.0-15.5); LYMPH # 1.2 10^3/uL (1.5-5.0); LYMPH % 32.3 % (24.0-44.0); MEAN CORPUSCULAR HGB CONC 26.7 g/dl (32.0-36.5); MEAN CORPUSCULAR VOLUME 67.4 fl (80.0-96.0); MONO # 0.4 10^3/uL (0.0-0.8); MONO % 10.8 % (2.0-8.0); PLATELET COUNT, AUTOMATED 207 10^3/uL (150-450); RED BLOOD COUNT 4.84 10^6/uL (4.00-5.40); WHITE BLOOD COUNT 3.8 10^3/uL (4.0-10.0)
[2020-12-28 14:14] LABS: ALBUMIN 4.2 GM/DL (3.2-5.2); ALT/SGPT 19 U/L (12-78); BILIRUBIN,TOTAL 0.3 MG/DL (0.2-1.0); BLOOD UREA NITROGEN 5 MG/DL (7-18); CALCIUM LEVEL 8.4 MG/DL (8.5-10.1); CARBON DIOXIDE LEVEL 25 MEQ/L (21-32); CHLORIDE LEVEL 109 MEQ/L (98-107); FERRITIN < 3 NG/ML (8-252); GLOMERULAR FILTRATION RATE > 60.0 (>60); GLUCOSE, FASTING 90 MG/DL (70-100); IRON (FE) 17 UG/DL (50-170); PERCENT SATURATION 3.2 % (13.2-45.0); POTASSIUM SERUM 3.5 MEQ/L (3.5-5.1); SODIUM LEVEL 140 MEQ/L (136-145); TOTAL IRON BINDING CAPACITY 533 UG/DL (250-450); TOTAL PROTEIN 7.5 GM/DL (6.4-8.2)
[2020-12-30 19:07] LABS: FREE KAPPA LIGHT CHAINS SERUM 7.9 mg/L (3.3-19.4); KAPPA/LAMBDA RATIO SERUM 0.88 (0.26-1.65)
== END ==
LOC: M LAB 13:27
PROVIDERS: ATTEND Physician Assistant
DX: D50.9 Iron deficiency anemia, unspecified (principal)

== ENCOUNTER 2021-09-05 04:05 | Emergency (ER) | payer OTHER ==
[~2021-09-05] VITALS: Ht 162.6 cm; Wt 54.5 kg
--- OUTSIDE RECORDS SUMMARY | 2021-09-05 04:12 | CCD ---
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 Role Phone Test, Provider Unavailable PROBLEMS Type Condition ICD9-CM Code KVR06-OF Code Onset Dates Condition S tatus W/U Status Risk SNOMED Code Notes Problem PTSD (post-traumatic stress disorder) F43.10 Ac tive confirmed 33555042 Problem Tobacco dependence F17.200 Active confirmed 73455106 Problem Cigarette nicotine dependence without complication F17.210 Active confirmed 45806329 Problem Anxiety F41.9 Active confirmed 89307032 Problem Abnormal bleeding in menstrual cycle N93.9 Act bobby confirmed 046201433 Problem Anemia, unspecified type D64.9 Active confirmed 073665038 Problem Elevated blood pressure reading R03.0 Active confi rmed 08698337 Problem 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 20 Active confirmed 327934322 Problem Acute midline low back pain with left-sided sciatica M54.42 Active confirmed 411227307 Problem Bee sting allergy Z91.030 Active confirmed 4 08519241 Problem Lumbago with sciatica, left side M54.42 Active confirmed 203603013 Problem Lumbago with sciatica, right side M54.41 Active confirmed 906007072034579 Problem DDD (degenerative disc disease), lumbar M51.36 Active confirmed 18386628 Problem Iron deficiency anemia due to chronic blood loss D 50.0 Active confirmed 400844380 ALLERGIES Allergen (clinical drug ingredient) Drug/Non Drug Allergy do cumented on EMR Reaction Allergy Type Onset Date Status torsemide Torsemide([facility] Code:[address]-39) Anaphylaxis Drug Allergy Active azithromycin Zithromax([facility] Code:[address]-73) anxiety Drug Allerg y Active ENCOUNTERS from 1983 to 2021-08-06 Encounter Location Date Provider Diagnosis [facility] [phone] [place] [address] 24 Jul, 2021 Provider Test IMMUNIZATIONS Vaccine Route Administration Date Status Influenza 6mo & up Fluzone IM Intramuscular Sep 29, 2018 Admi nistered SOCIAL HISTORY Tobacco Use: Social History Observation Description Date Details (start date - stop date) Current Smoker Sex Assigned At : Social History Observation Description Sex Assigned At Unknown Education: Question Answer Notes Level of Education: Not finished High School Audit Question Answer Notes Total Score: 0 Interpretation: Alcohol Education Language: Question Answer Notes Languages spoken: Djiboutian Roman Catholic: Question Answer Notes Roman Catholic No mormon beliefs that would impact health care. Sexual Hx: Question Answer Notes Had sex in the last 12 months (vaginal, oral, or anal)? Yes Have you ever had an STD? No Prevention Strategies discussed: Other with Men only Use protection? No Drug and Alcohol Question Answer Notes Total Score: 0 Interpretation: No problems reported Alcohol Screening: Question Answer Notes Did you have a drink containing alcohol in the past year? No Points 0 Interpretation Negative Tobacco Use: Question Answer Notes Are you a: current smoker Smoking Cessation Information Given 06/05/2019 Patient counseled on the dangers of tobacco use and urged to quit: 06/05/2019 How many cigarettes a day do you smoke? 11-20 Are you interested in quitting? Not ready to quit Counseled the patient on smoking effects, education provided 06/05/2019 REASON FOR REFERRAL No Information VITAL SIGNS No information MEDICATIONS Medication SIG (Take, Route, Frequency, Duration) Notes Start Da te End Date Status Meloxicam 7.5 MG 1 tablet Orally bid for 30 day(s) Dec, Not-Taking Zoloft 50 MG 1 tablet Orally before bedtime for 30 day(s) May, Not-Taking Imitrex 25 mg 1 tablet as needed,if no imp rovement in 1hour may repeat once Orally Twice a day for 30 day(s) Not-Taking Gabapentin 100 MG 1 capsule Orally Three times a day for 30 day( s) Dec, Not-Taking Albuterol Sulfate HFA 108 (90 Base) MCG/ACT 2 puffs as needed Inhalation every 6 hrs for 30 days Active Ferrous Sulfate 325 (65 Fe) MG 2 tablet Orally Once ev er other day for 30 day(s) Not-Taking Propranolol HCl 10 MG 1 tablet on an empty stomach Orally Once a day for 30 day(s) Not-Taking Ketorolac Tromethamine 10 MG 1 tablet with food or mil k as needed Orally every 6 hrs for 5 day(s) Active Colace 100 MG 1 capsule as needed Orally Once a day for 30 day(s) Not-Taking Cyclobenzaprine HCl 5 MG 1 tablet at bedtime as neede d Orally Once a day for 30 day(s) Active tiZANidine HCl 2 MG 1 tablet as needed Orally Three times a day prn Not-Taking tiZANidine HCl 2 MG 1 tablet as needed Orally Three times a day for 30 day(s) Dec, Not-Taking Ondansetron 4 MG 1 tablet on the tongue and a llow to dissolve Orally Once a day for 30 day(s) Active Venofer 20 MG/ML as directed Intravenous 250mg once in OPP May, Not-Taking Loratadine 10 MG 1 tablet Orally Once a day for 30 day(s) Dec, Not-Taking tiZANidine HCl 2 MG 1-2 tablet as needed Orally before bed for 3 0 Days Oct, Active Ferrous Sulfate 325 (65 Fe) MG 1 tablet Orally Once a day for 30 day(s) Dec, Active Meclizine HCl 25 mg 1 tablet as needed Orally On ce a day as needed for motion sickness Not-Taking Ferrous Sulfate 220 (44 Fe) MG/5ML as directed Orally every other day for 30 day(s) Jul, Not-Taking EPINEPHrine 0.3 MG/0.3ML after bee sting if can't bernarda athe Injection once for 30 days Active PROCEDURES No Information RESULTS No Results REASON FOR VISIT Appointment MEDICAL (GENERAL) HISTORY Type Description Date Medical History Generalized Anxiety Disorder Medical History Panic Disorder Medical History PTSD Medical History Mild Intermittent Asthma Medical History Seasonal Allergic Rhinoconjunctivitis Medical History Tobacco dependency Medical History migraines Medical History "Tethered cord"-records requested Surgical History at [facility] 07/05/2005 Surgical History at [facility] 10/26/2007 Surgical History at [facility] [facility] 11/20/08 Surgical History C section/tubal 03/20/2015 Hospitalization History child births x4 Goals Section No Information Health Concerns No Information MEDICAL EQUIPMENT No Information MENTAL STATUS No Information FUNCTIONAL STATUS No Information ASSESSMENTS No Information PLAN OF TREATMENT Medication Medication Name Sig Start Date Stop Date Albuterol Sulfate HFA 108 (90 Base) MCG/ACT 2 puffs as needed Inhalation every 6 hrs for 30 days tiZANidine HCl 2 MG 1-2 tablet as needed Orally before bed f or 30 Days Oct, Ferrous Sulfate 325 (65 Fe) MG 1 tablet Orally Once a day fo r 30 day(s) Dec, Insurance Providers Payer Name Payer Address Payer Phone Insured Name Patient Relati onship to Insured Coverage Start Date Coverage End Date [facility] [employer] [facility] [address] [facility] [phone] KANDY SHERIDAN self
--- OUTSIDE RECORDS SUMMARY | 2021-09-05 04:12 | CCD ---
Author Author [facility] Syst ems Organization [facility] ems Address Unknown Phone Unavailable Care Team Providers Care Corporate Travel Manager Name Role Phone Bibiana Urbano Unavailable PROBLEMS Type Condition ICD9-CM Code DSP13-RO Code Onset Dates Condition S tatus W/U Status Risk SNOMED Code Notes Problem PTSD (post-traumatic stress disorder) F43.10 Ac tive confirmed 48227797 Problem Tobacco dependence F17.200 Active confirmed 54426960 Problem Cigarette nicotine dependence without complication F17.210 Active confirmed 83028508 Problem Anxiety F41.9 Active confirmed 95817264 Problem Abnormal bleeding in menstrual cycle N93.9 Act bobby confirmed 823492560 Problem Anemia, unspecified type D64.9 Active confirmed 480759196 Problem Elevated blood pressure reading R03.0 Active confi rmed 88936231 Problem Intractable migraine without aura and with status migr ainosus G43.011 Active confirmed 384478743 Problem Cervical cancer screening Z12.4 Active confirmed 016229456 Problem Breast cancer screening by mammogram Z12.31 Act bobby confirmed 083936607 Problem Iron deficiency anemia, unspecified iron deficiency an emia type D50.9 Active confirmed 87022000 Problem Constipation, unspecified constipation type K59.00 Active confirmed 74259116 Problem Mild intermittent asthma without complication J45. 20 Active confirmed 604885249 Problem Acute midline low back pain with left-sided sciatica M54.42 Active confirmed 009619436 Problem Bee sting allergy Z91.030 Active confirmed 4 51668235 Problem Lumbago with sciatica, left side M54.42 Active confirmed 525891069 Problem Lumbago with sciatica, right side M54.41 Active confirmed 875731941819099 Problem DDD (degenerative disc disease), lumbar M51.36 Active confirmed 18049035 Problem Iron deficiency anemia due to chronic blood loss D 50.0 Active confirmed 129853834 ALLERGIES Allergen (clinical drug ingredient) Drug/Non Drug Allergy do cumented on EMR Reaction Allergy Type Onset Date Status torsemide Torsemide([facility] Code:[address]-71) Anaphylaxis Drug Allergy Active azithromycin Zithromax([facility] Code:[address]-82) anxiety Drug Allerg y Active ENCOUNTERS from 1983 to 2021-07-07 Encounter Location Date Provider Diagnosis [facility] [address] [facility] [phone] [place] [address] Jul, Bibiana Sundeep IMMUNIZATIONS Vaccine Route Administration Date Status Influenza [...] Education Language: Question Answer Notes Languages spoken: Maltese Anabaptist: Question Answer Notes Anabaptist No jehovah's witness beliefs that would impact health care. Sexual [...] History "Tethered cord"-records requested Surgical History at [facility] 07/05/2005 Surgical History at [facility] 10/26/2007 Surgical History at [facility] 11/20/08 Surgical History C section/tubal 03/20/2015 Hospitalization [...] Insured Coverage Start Date Coverage End Date [facility] COMMUNITY PLAN [facility] [address] [facility] [phone] KANDY SHERIDAN self
--- OUTSIDE RECORDS SUMMARY | 2021-09-05 04:12 | CCD ---
Author Author [facility] Syst ems Organization [facility] ems Address Unknown Phone Unavailable Care Team Providers Care Surgical Brace Maker Name Role Phone Bibiana Urbano Unavailable PROBLEMS Type Condition ICD9-CM Code VZX61-LU Code Onset Dates Condition S tatus W/U Status Risk SNOMED Code Notes Problem PTSD (post-traumatic stress disorder) F43.10 Ac tive confirmed 24569952 Problem Tobacco dependence F17.200 Active confirmed 82275811 Problem Cigarette nicotine dependence without complication F17.210 Active confirmed 45395660 Problem Anxiety F41.9 Active confirmed 82788879 Problem Abnormal bleeding in menstrual cycle N93.9 Act bobby confirmed 294829709 Problem Anemia, unspecified type D64.9 Active confirmed 762079729 Problem Elevated blood pressure reading R03.0 Active confi rmed 08148195 Problem Intractable migraine without aura and with status migr ainosus G43.011 Active confirmed 187831248 Problem Cervical cancer screening Z12.4 Active confirmed 561791456 Problem Breast cancer screening by mammogram Z12.31 Act bobby confirmed 943207382 Problem Iron deficiency anemia, unspecified iron deficiency an emia type D50.9 Active confirmed 78102526 Problem Constipation, unspecified constipation type K59.00 Active confirmed 44321488 Problem Mild intermittent asthma without complication J45. 20 Active confirmed 174440326 Problem Acute midline low back pain with left-sided sciatica M54.42 Active confirmed 256124332 Problem Bee sting allergy Z91.030 Active confirmed 4 76610716 Problem Lumbago with sciatica, left side M54.42 Active confirmed 496544419 Problem Lumbago with sciatica, right side M54.41 Active confirmed 588867313139276 Problem DDD (degenerative disc disease), lumbar M51.36 Active confirmed 76915247 Problem Iron deficiency anemia due to chronic blood loss D 50.0 Active confirmed 704952541 ALLERGIES Allergen (clinical drug ingredient) Drug/Non Drug Allergy do cumented on EMR Reaction Allergy Type Onset Date Status torsemide Torsemide([facility] Code:[address]-78) Anaphylaxis Drug Allergy Active azithromycin Zithromax([facility] Code:[address]-17) anxiety Drug Allerg y Active ENCOUNTERS from 1983 to 2021-06-24 Encounter Location Date Provider Diagnosis [facility] [address] [facility] [phone] [place] [address] May, Bibiana Sundeep IMMUNIZATIONS Vaccine Route Administration Date [...] Education Language: Question Answer Notes Languages spoken: Tajik Hoahaoism: Question Answer Notes Hoahaoism No roman catholic beliefs that would impact health care. Sexual [...] History "Tethered cord"-records requested Surgical History at [facility] 07/05/2005 Surgical History at [facility] 10/26/2007 Surgical History at [facility] 11/20/08 Surgical History C section/tubal [...] a day fo r 30 day(s) Dec, Next Appt Details Provider Name:Bibiana Urbano, 2021-06-26 08 :45:00 AM, [address] [facility], , [place], [address], Insurance Providers Payer Name Payer Address Payer Phone Insured Name Patient Relati onship to Insured Coverage Start Date Coverage End Date [facility] COMMUNITY PLAN [facility] [address] [facility] [address] KANDY SHERIDAN self
--- OUTSIDE RECORDS SUMMARY | 2021-09-05 04:12 | CCD ---
Author Author [facility] Syst ems Organization [facility] ems Address Unknown Phone Unavailable Care Team Providers Care Forest Technology Professor Name Role Phone Bibiana Urbano Unavailable PROBLEMS Type Condition ICD9-CM Code JUA33-QT Code Onset Dates Condition S tatus W/U Status Risk SNOMED Code Notes Problem PTSD (post-traumatic stress disorder) F43.10 Ac tive confirmed 64912930 Problem Tobacco dependence F17.200 Active confirmed 44876996 Problem Cigarette nicotine dependence without complication F17.210 Active confirmed 22421498 Problem Anxiety F41.9 Active confirmed 24721074 Problem Abnormal bleeding in menstrual cycle N93.9 Act bobby confirmed 852265854 Problem Anemia, unspecified type D64.9 Active confirmed 224687615 Problem Elevated blood pressure reading R03.0 Active confi rmed 31160904 Problem Intractable migraine without aura and with status migr ainosus G43.011 Active confirmed 531480920 Problem Cervical cancer screening Z12.4 Active confirmed 252081568 Problem Breast cancer screening by mammogram Z12.31 Act bobby confirmed 772734468 Problem Iron deficiency anemia, unspecified iron deficiency an emia type D50.9 Active confirmed 11569832 Problem Constipation, unspecified constipation type K59.00 Active confirmed 44186472 Problem Mild intermittent asthma without complication J45. 20 Active confirmed 282844475 Problem Acute midline low back pain with left-sided sciatica M54.42 Active confirmed 718691123 Problem Bee sting allergy Z91.030 Active confirmed 4 27005884 Problem Lumbago with sciatica, left side M54.42 Active confirmed 869026459 Problem Lumbago with sciatica, right side M54.41 Active confirmed 171603858690907 Problem DDD (degenerative disc disease), lumbar M51.36 Active confirmed 57036383 Problem Iron deficiency anemia due to chronic blood loss D 50.0 Active confirmed 627924533 ALLERGIES Allergen (clinical drug ingredient) Drug/Non Drug Allergy do cumented on EMR Reaction Allergy Type Onset Date Status torsemide Torsemide([facility] Code:[address]-63) Anaphylaxis Drug Allergy Active azithromycin Zithromax([facility] Code:[address]-85) anxiety Drug Allerg y Active ENCOUNTERS from 1983 to 2021-07-24 Encounter Location Date Provider Diagnosis [facility] [address] [facility] [phone] [place] [address] Jul, Bibiana Sundeep IMMUNIZATIONS Vaccine Route Administration [...] Education Language: Question Answer Notes Languages spoken: Yakut Tenriism: Question Answer Notes Tenriism No christian beliefs that would impact health care. Sexual [...] Information RESULTS No Results REASON FOR VISIT Question MEDICAL (GENERAL) HISTORY Type Description Date Medical History Generalized Anxiety Disorder Medical History Panic Disorder Medical History PTSD Medical History Mild Intermittent Asthma Medical History Seasonal Allergic Rhinoconjunctivitis Medical History Tobacco dependency Medical History migraines Medical History "Tethered cord"-records requested Surgical History at [facility] 07/05/2005 Surgical History at [facility] 10/26/2007 Surgical History at [facility] 11/20/08 Surgical History C section/tubal 03/20/2015 Hospitalization [...] Insured Coverage Start Date Coverage End Date [facility] COMMUNITY PLAN [facility] [address] [facility] [address] [phone] KANDY SHERIDAN self
--- OUTSIDE RECORDS SUMMARY | 2021-09-05 04:12 | CCD ---
Author Author [facility] Syst ems Organization [facility] ems Address Unknown Phone Unavailable Care Team Providers Care Licensed Acupuncturist Name Role Phone Bibiana Urbano Unavailable PROBLEMS Type Condition ICD9-CM Code INA41-BZ Code Onset Dates Condition S tatus W/U Status Risk SNOMED Code Notes Problem PTSD (post-traumatic stress disorder) F43.10 Ac tive confirmed 01612663 Problem Tobacco dependence F17.200 Active confirmed 08674476 Problem Cigarette nicotine dependence without complication F17.210 Active confirmed 38953763 Problem Anxiety F41.9 Active confirmed 91560334 Problem Abnormal bleeding in menstrual cycle N93.9 Act bobby confirmed 310851919 Problem Anemia, unspecified type D64.9 Active confirmed 952765981 Problem Elevated blood pressure reading R03.0 Active confi rmed 64403371 Problem Intractable migraine without aura and with status migr ainosus G43.011 Active confirmed 377450827 Problem Cervical cancer screening Z12.4 Active confirmed 688377611 Problem Breast cancer screening by mammogram Z12.31 Act bobby confirmed 248316953 Problem Iron deficiency anemia, unspecified iron deficiency an emia type D50.9 Active confirmed 25374709 Problem Constipation, unspecified constipation type K59.00 Active confirmed 87339136 Problem Mild intermittent asthma without complication J45. 20 Active confirmed 800769563 Problem Acute midline low back pain with left-sided sciatica M54.42 Active confirmed 468285393 Problem Bee sting allergy Z91.030 Active confirmed 4 18692372 Problem Lumbago with sciatica, left side M54.42 Active confirmed 853829339 Problem Lumbago with sciatica, right side M54.41 Active confirmed 571067769286925 Problem DDD (degenerative disc disease), lumbar M51.36 Active confirmed 10696331 Problem Iron deficiency anemia due to chronic blood loss D 50.0 Active confirmed 015119534 ALLERGIES Allergen (clinical drug ingredient) Drug/Non Drug Allergy do cumented on EMR Reaction Allergy Type Onset Date Status torsemide Torsemide([facility] Code:[address]-22) Anaphylaxis Drug Allergy Active azithromycin Zithromax([facility] Code:[address]-95) anxiety Drug Allerg y Active ENCOUNTERS from 1983 to 2021-07-09 Encounter Location Date Provider Diagnosis [facility] [address] [facility] [phone] [place] [address] May, Bibiana Sundeep IMMUNIZATIONS Vaccine Route Administration [...] Language: Question Answer Notes Languages spoken: Maltese Voodoo: Question Answer Notes Voodoo No taoism beliefs that would impact health care. Sexual [...] History "Tethered cord"-records requested Surgical History at [facility] 07/05/2005 Surgical History at [facility] 10/26/2007 Surgical History at [facility] 11/20/08 Surgical History C section/tubal 03/20/2015 [...] Insured Coverage Start Date Coverage End Date [facility] COMMUNITY PLAN [facility] [address] [facility] [phone] KANDY SHERIDAN self
--- OUTSIDE RECORDS SUMMARY | 2021-09-05 04:12 | CCD ---
Author Author [facility] Syst ems Organization [facility] ems Address Unknown Phone Unavailable Care Team Providers Care Digital Marketing Program Manager Name Role Phone Bibiana Urbano Unavailable PROBLEMS Type Condition ICD9-CM Code QQQ55-SU Code Onset Dates Condition S tatus W/U Status Risk SNOMED Code Notes Problem PTSD (post-traumatic stress disorder) F43.10 Ac tive confirmed 25382113 Problem Tobacco dependence F17.200 Active confirmed 60739955 Problem Cigarette nicotine dependence without complication F17.210 Active confirmed 86242109 Problem Anxiety F41.9 Active confirmed 96904589 Problem Abnormal bleeding in menstrual cycle N93.9 Act bobby confirmed 981353577 Problem Anemia, unspecified type D64.9 Active confirmed 861160959 Problem Elevated blood pressure reading R03.0 Active confi rmed 75549995 Problem Intractable 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 20 Active confirmed 827755174 Problem Acute midline low back pain with left-sided sciatica M54.42 Active confirmed 474521558 Problem Bee sting allergy Z91.030 Active confirmed 4 82258938 Problem Lumbago with sciatica, left side M54.42 Active confirmed 527358287 Problem Lumbago with sciatica, right side M54.41 Active confirmed 582034695015107 Problem DDD (degenerative disc disease), lumbar M51.36 Active confirmed 11670518 Problem Iron deficiency anemia due to chronic blood loss D 50.0 Active confirmed 979406578 ALLERGIES Allergen (clinical drug ingredient) Drug/Non Drug Allergy do cumented on EMR Reaction Allergy Type Onset Date Status torsemide Torsemide([facility] Code:[address]-46) Anaphylaxis Drug Allergy Active azithromycin Zithromax([facility] Code:[address]-22) anxiety Drug Allerg y Active ENCOUNTERS from 1983 to 2021-06-25 Encounter Location Date Provider Diagnosis [facility] [address] [facility] [phone] [place] [address] May, Bibiana Sundeep IMMUNIZATIONS Vaccine Route Administration [...] Education Language: Question Answer Notes Languages spoken: Serbian Advent: Question Answer Notes Advent No episcopal beliefs that would impact health care. Sexual [...] History "Tethered cord"-records requested Surgical History at [facility] 07/05/2005 Surgical History at [facility] 10/26/2007 Surgical History at [facility] 11/20/08 Surgical History C [...] Insured Coverage Start Date Coverage End Date [facility] COMMUNITY PLAN [facility] [address] [facility] [phone] KANDY SHERIDAN self
--- OUTSIDE RECORDS SUMMARY | 2021-09-05 04:12 | CCD ---
Author Author [facility] ems Organization [facility] ems Address Unknown Phone Unavailable Care Team Providers Care Percher Name Role Phone Bibiana Urbano Unavailable PROBLEMS Type Condition ICD9-CM Code DYT42-TG Code Onset Dates Condition S tatus W/U Status Risk SNOMED Code Notes Problem PTSD (post-traumatic stress disorder) F43.10 Ac tive confirmed 21969352 Problem Tobacco dependence F17.200 Active confirmed 40210000 Problem Cigarette nicotine dependence without complication F17.210 Active confirmed 78026435 Problem Anxiety F41.9 Active confirmed 36016058 Problem Abnormal bleeding in menstrual cycle N93.9 Act bobby confirmed 134154297 Problem Anemia, unspecified type D64.9 Active confirmed 241718062 Problem Elevated blood pressure reading R03.0 Active confi rmed 99195394 Problem 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 20 Active confirmed 993436527 Problem Acute midline low back pain with left-sided sciatica M54.42 Active confirmed 964516745 Problem Bee sting allergy Z91.030 Active confirmed 4 41547240 Problem Lumbago with sciatica, left side M54.42 Active confirmed 630215703 Problem Lumbago with sciatica, right side M54.41 Active confirmed 388372373645858 Problem DDD (degenerative disc disease), lumbar M51.36 Active confirmed 69946284 Problem Iron deficiency anemia due to chronic blood loss D 50.0 Active confirmed 328638346 ALLERGIES Allergen (clinical drug ingredient) Drug/Non Drug Allergy do cumented on EMR Reaction Allergy Type Onset Date Status torsemide Torsemide([facility] Code:[address]-30) Anaphylaxis Drug Allergy Active azithromycin Zithromax([facility] Code:[address]-40) anxiety Drug Allerg y Active ENCOUNTERS from 1983 to 2021-07-14 Encounter Location Date Provider Diagnosis [facility] [address] [facility] [phone] [place] [address] May, Bibiana Sundeep IMMUNIZATIONS Vaccine Route Administration [...] Education Language: Question Answer Notes Languages spoken: Latvian Buddhism: Question Answer Notes Buddhism No christianity beliefs that would impact health care. Sexual [...] Information RESULTS No Results REASON FOR VISIT Re:RE:Appointment MEDICAL (GENERAL) HISTORY Type Description Date Medical History Generalized Anxiety Disorder Medical History Panic Disorder Medical History PTSD Medical History Mild Intermittent Asthma Medical History Seasonal Allergic Rhinoconjunctivitis Medical History Tobacco dependency Medical History migraines Medical History "Tethered cord"-records requested Surgical History at [facility] 07/05/2005 Surgical History at [facility] 10/26/2007 Surgical History at [facility] 11/20/08 Surgical History C section/tubal 03/20/2015 [...] Start Date Coverage End Date [facility] COMMUNITY PLAN [facility] [address] [facility] [address] KANDY SHERIDAN self
--- OUTSIDE RECORDS SUMMARY | 2021-09-05 04:12 | CCD ---
Author Author [facility] Syst ems Organization [facility] ems Address Unknown Phone Unavailable Care Team Providers Care Dye Weigher Name Role Phone Bibiana Urbano Unavailable PROBLEMS Type Condition ICD9-CM Code GAM52-ZU Code Onset Dates Condition S tatus W/U Status Risk SNOMED Code Notes Problem PTSD (post-traumatic stress disorder) F43.10 Ac tive confirmed 98788473 Problem Tobacco dependence F17.200 Active confirmed 03957775 Problem Cigarette nicotine dependence without complication F17.210 Active confirmed 06719049 Problem Anxiety F41.9 Active confirmed 22512543 Problem Abnormal bleeding in menstrual cycle N93.9 Act bobby confirmed 768231783 Problem Anemia, unspecified type D64.9 Active confirmed 822039140 Problem Elevated blood pressure reading R03.0 Active confi rmed 17820620 Problem 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 20 Active confirmed 001298441 Problem Acute midline low back pain with left-sided sciatica M54.42 Active confirmed 675610187 Problem Bee sting allergy Z91.030 Active confirmed 4 66902704 Problem Lumbago with sciatica, left side M54.42 Active confirmed 322626280 Problem Lumbago with sciatica, right side M54.41 Active confirmed 456258304730179 Problem DDD (degenerative disc disease), lumbar M51.36 Active confirmed 92735349 Problem Iron deficiency anemia due to chronic blood loss D 50.0 Active confirmed 354557651 ALLERGIES Allergen (clinical drug ingredient) Drug/Non Drug Allergy do cumented on EMR Reaction Allergy Type Onset Date Status torsemide Torsemide([facility] Code:[address]-12) Anaphylaxis Drug Allergy Active azithromycin Zithromax([facility] Code:[address]-13) anxiety Drug Allerg y Active ENCOUNTERS from 1983 to 2021-07-01 Encounter Location Date Provider Diagnosis [facility] [address] [facility] [phone] [place] [address] May, Bibiana Sundeep IMMUNIZATIONS Vaccine Route Administration [...] Education Language: Question Answer Notes Languages spoken: Nepali Judaism: Question Answer Notes Judaism No yarsani beliefs that would impact health care. Sexual [...] History "Tethered cord"-records requested Surgical History at [facility] 07/05/2005 Surgical History at [facility] 10/26/2007 Surgical History at [facility] 11/20/08 Surgical History C section/tubal 03/20/2015 [...] Dec, Next Appt Details Provider Name:Bibiana Urbano, 2021-07-14 11 :00:00 AM, [address] [facility], , [place], [address], Insurance Providers Payer Name Payer Address Payer Phone Insured Name Patient Relati onship to Insured Coverage Start Date Coverage End Date [facility] COMMUNITY PLAN [facility] [address] [facility] [address] AKNDY SHERIDAN self
--- OUTSIDE RECORDS SUMMARY | 2021-09-05 04:13 | CCD ---
Author Author [facility] Address Unknown Phone Unavailable Support Name Relationship Address Phone Westley TEJChari Next Of Kin [address] [place] [address] UN Next Of Kin Unknown Unavailable NONE, PATIENT PER Next Of Kin - -, - Unavailable Lorenza RENAE, Krystal Next Of Kin [address] [place], [place] [phone] Orlando BURNHAM, Joanna Next Of Kin [address] [place] [address] 315 UE Next Of Kin Unknown Unavailable UNEMPLOYED Next Of Kin Unknown ESMER TITUS Next Of Kin [address] [place] [address] ERNESTO TITSU SR Next Of Kin Unknown Ernesto Titus [address] [place] [address] Unavailable Re-disclosure Warning The records that you are about to access may contain information from federally-assisted alcohol or drug abuse programs. If such information is present, then the following federally mandated warning applies: This information has been disclosed to you from records protected by federal confidentiality rules (42 CFR part 2). The federal rules prohibit you from making any further disclosure of this information unless further disclosure is expressly permitted by the written consent of the person to whom it pertains or as otherwise permitted by 42 CFR part 2. A general authorization for the release of medical or other information is NOT sufficient for this purpose. The Federal rules restrict any use of the information to criminally investigate or prosecute any alcohol or drug abuse patient.The records that you are about to access may contain highly sensitive health information, the redisclosure of which is protected by Article 27-F of the [facility] Public Health law. If you continue you may have access to information: Regarding HIV / AIDS; Provided by facilities licensed or operated by the [facility] Office of Mental Health; or Provided by the [facility] Office for People With Developmental Disabilities. If such information is present, then the following [facility] mandated warning applies: This information has been disclosed to you from confidential records which are protected by state law. State law prohibits you from making any further disclosure of this information without the specific written consent of the person to whom it pertains, or as otherwise permitted by law. Any unauthorized further disclosure in violation of state law may result in a fine or halfway sentence or both. A general authorization for the release of medical or other information is NOT sufficient authorization for further disc losure. Encounters Encounter Providers Location Date Indications Data Source(s ) Unknown [address] [facility] [id number] 07/24/2021 12:00:00 AM EDT eCW1 ([facility]) Unknown [address] [facility] [address] 07/20/2021 12:00:00 AM EDT eCW1 ([facility]) Unknown [address] [facility] [address] 07/04/2021 12:00:00 AM EDT eCW1 ([facility]) Unknown [address] [facility] [address] 06/30/2021 12:00:00 AM EDT eCW1 ([facility]) Unknown [address] [facility] [address] 06/26/2021 12:00:00 AM EDT eCW1 ([facility]) Unknown [address] [facility] [address] 06/25/2021 12:00:00 AM EDT eCW1 ([facility]) Unknown [address] [facility] [address] 06/24/2021 12:00:00 AM EDT eCW1 ([facility]) Unknown [address] [facility] Y [address] 06/20/2021 12:00:00 AM EDT eCW1 ([facility]) Unknown [address] [facility] [place] [address] 05/29/2021 12:00:00 AM EDT eCW1 ([facility]) Unknown [address] [facility] [place] [address] 05/05/2021 12:00:00 AM EDT eCW1 ([facility]) Unknown [address] [facility] [place] [address] 03/03/2021 12:00:00 AM EDT eCW1 ([facility]) Unknown [address] [facility] [place] [address] 01/26/2021 12:00:00 AM EDT eCW1 ([facility]) Unknown [address] [facility] [place] [address] 01/21/2021 12:00:00 AM EDT eCW1 ([facility]) Unknown [address] [facility] [place] [address] 01/05/2021 12:00:00 AM EST eCW1 ([facility]) Unknown [address] [facility] [place] [address] 12/20/2020 12:00:00 AM EST eCW1 ([facility]) Unknown [address] [facility] [place] [address] 12/10/2020 12:00:00 AM EST eCW1 ([facility]) Unknown [address] [facility] [place] [address] 12/10/2020 12:00:00 AM EST eCW1 ([facility]) Unknown [address] [facility] [place] [address] 12/10/2020 12:00:00 AM EST eCW1 ([facility]) Outpatient [address] [facility] [place] [address] 11/25/2020 12:00:00 AM EST eCW1 ([facility]) Unknown [address] [facility] [place] [address] 11/25/2020 12:00:00 AM EST eCW1 ([facility]) [place] [address] [facility] [place] [address] 10/02/2020 12:00:00 AM EST eCW1 ([facility]) Unknown [address] [facility] [place] [address] 09/16/2020 12:00:00 AM EST eCW1 ([facility]) Medications Medication Brand Name Start Date Product Form Dose Route Admi nistrative Instructions Pharmacy Instructions Status Indications Reaction Description Data Source(s) 90 mcg/actuation 12/23/2020 12:00:00 AM EST HFA aerosol inha ler 18 INHALE 2 PUFFS BY MOUTH NEEDED EVERY 6 HOURS INHALE 2 PUFFS BY MOUTH NEEDED EVERY 6 HOURS SOLD: 12/25/2020 [facility] 90 mcg/actuation 12/23/2020 12:00:00 AM EST HFA aerosol inha ler 18 INHALE 2 PUFFS BY MOUTH NEEDED EVERY 6 HOURS INHALE 2 PUFFS BY MOUTH NEEDED EVERY 6 HOURS SOLD: 01/25/2021 [facility] 325 mg (65 mg iron) 12/04/2020 12:00:00 AM EST tablet 30 TAKE ONE TABLET BY MOUTH EVERY DAY TAKE ONE TABLET BY MOUTH EVERY DAY SOLD: 12/04/2020 [facility] ferrous sulfate 325 MG Oral Tablet Ferrous Sulfate 325 (65 Fe) MG Ferrous Sulfate 325 (65 Fe) MG 12/03/2020 12:00:00 AM EST 1.0 {tablet} active Ferrous Sulfate 325 (65 Fe) MG [facility] ([facility]) ferrous sulfate 325 MG Oral Tablet Ferrous Sulfate 325 (65 Fe) MG Ferrous Sulfate 325 (65 Fe) MG 12/03/2020 12:00:00 AM EST 1.0 {tablet} active Ferrous Sulfate 325 (65 Fe) MG eCW1 ([facility]) ferrous sulfate 325 MG Oral Tablet Ferrous Sulfate 325 (65 Fe) MG Ferrous Sulfate 325 (65 Fe) MG 12/03/2020 12:00:00 AM EST 1.0 {tablet} active Ferrous Sulfate 325 (65 Fe) MG W1 ([facility]) ferrous sulfate 325 MG Oral Tablet Ferrous Sulfate 325 (65 Fe) MG Ferrous Sulfate 325 (65 Fe) MG 12/03/2020 12:00:00 AM EST 1.0 {tablet} active Ferrous Sulfate 325 (65 Fe) MG eCW1 ([facility]) ferrous sulfate 325 MG Oral Tablet Ferrous Sulfate 325 (65 Fe) MG Ferrous Sulfate 325 (65 Fe) MG 12/03/2020 12:00:00 AM EST 1.0 {tablet} active Ferrous Sulfate 325 (65 Fe) MG eCW1 ([facility]) ferrous sulfate 325 MG Oral Tablet Ferrous Sulfate 325 (65 Fe) MG Ferrous Sulfate 325 (65 Fe) MG 12/03/2020 12:00:00 AM EST 1.0 {tablet} active Ferrous Sulfate 325 (65 Fe) MG eCW1 ([facility]) ferrous sulfate 325 MG Oral Tablet Ferrous Sulfate 325 (65 Fe) MG Ferrous Sulfate 325 (65 Fe) MG 12/03/2020 12:00:00 AM EST 1.0 {tablet} active Ferrous Sulfate 325 (65 Fe) MG eCW1 ([facility]) ferrous sulfate 325 MG Oral Tablet Ferrous Sulfate 325 (65 Fe) MG Ferrous Sulfate 325 (65 Fe) MG 12/03/2020 12:00:00 AM EST 1.0 {tablet} active Ferrous Sulfate 325 (65 Fe) MG eCW1 ([facility]) ferrous sulfate 325 MG Oral Tablet Ferrous Sulfate 325 (65 Fe) MG Ferrous Sulfate 325 (65 Fe) MG 12/03/2020 12:00:00 AM EST 1.0 {tablet} active Ferrous Sulfate 325 (65 Fe) MG eCW1 ([facility]) ferrous sulfate 325 MG Oral Tablet Ferrous Sulfate 325 (65 Fe) MG Ferrous Sulfate 325 (65 Fe) MG 12/03/2020 12:00:00 AM EST 1.0 {tablet} active Ferrous Sulfate 325 (65 Fe) MG eCW1 ([facility]) ferrous sulfate 325 MG Oral Tablet Ferrous Sulfate 325 (65 Fe) MG Ferrous Sulfate 325 (65 Fe) MG 12/03/2020 12:00:00 AM EST 1.0 {tablet} active Ferrous Sulfate 325 (65 Fe) MG eCW1 ([facility]) ferrous sulfate 325 MG Oral Tablet Ferrous Sulfate 325 (65 Fe) MG Ferrous Sulfate 325 (65 Fe) MG 12/03/2020 12:00:00 AM EST 1.0 {tablet} active Ferrous Sulfate 325 (65 Fe) MG eCW1 ([facility]) ferrous sulfate 325 MG Oral Tablet Ferrous Sulfate 325 (65 Fe) MG Ferrous Sulfate 325 (65 Fe) MG 12/03/2020 12:00:00 AM EST 1.0 {tablet} active Ferrous Sulfate 325 (65 Fe) MG eCW1 ([facility]) ferrous sulfate 325 MG Oral Tablet Ferrous Sulfate 325 (65 Fe) MG Ferrous Sulfate 325 (65 Fe) MG 12/03/2020 12:00:00 AM EST 1.0 {tablet} active Ferrous Sulfate 325 (65 Fe) MG eCW1 ([facility]) ferrous sulfate 325 MG Oral Tablet Ferrous Sulfate 325 (65 Fe) MG Ferrous Sulfate 325 (65 Fe) MG 12/03/2020 12:00:00 AM EST 1.0 {tablet} active Ferrous Sulfate 325 (65 Fe) MG eCW1 ([facility]) ferrous sulfate 325 MG Oral Tablet Ferrous Sulfate 325 (65 Fe) MG Ferrous Sulfate 325 (65 Fe) MG 12/03/2020 12:00:00 AM EST 1.0 {tablet} active Ferrous Sulfate 325 (65 Fe) MG eCW1 ([facility]) ferrous sulfate 325 MG Oral Tablet Ferrous Sulfate 325 (65 Fe) MG Ferrous Sulfate 325 (65 Fe) MG 12/03/2020 12:00:00 AM EST 1.0 {tablet} active Ferrous Sulfate 325 (65 Fe) MG eCW1 ([facility]) ferrous sulfate 325 MG Oral Tablet Ferrous Sulfate 325 (65 Fe) MG Ferrous Sulfate 325 (65 Fe) MG 12/03/2020 12:00:00 AM EST 1.0 {tablet} active Ferrous Sulfate 325 (65 Fe) MG eCW1 ([facility]) ferrous sulfate 325 MG Oral Tablet Ferrous Sulfate 325 (65 Fe) MG Ferrous Sulfate 325 (65 Fe) MG 12/03/2020 12:00:00 AM EST 1.0 {tablet} active Ferrous Sulfate 325 (65 Fe) MG eCW1 ([facility]) tizanidine 2 MG Oral Tablet TIZANIDINE HCL 11/26/2020 12:00:00 AM EST tablet 30 TAKE 1-2 TABLETS BY MOUTH NEEDED BEFORE BEDTIME RAMYA E 1-2 TABLETS BY MOUTH NEEDED BEFORE BEDTIME SOLD: 11/26/2020 [facility] tizanidine 2 MG Oral Tablet tiZANidine HCl 2 MG tiZANidine H Cl 2 MG 11/25/2020 12:00:00 AM EST active tiZANidi ne HCl 2 MG eCW1 ([facility]) tizanidine 2 MG Oral Tablet tiZANidine HCl 2 MG tiZANidine H Cl 2 MG 11/25/2020 12:00:00 AM EST active tiZANidi ne HCl 2 MG eCW1 ([facility]) tizanidine 2 MG Oral Tablet Tizanidine HCl 2 MG Tizanidine H Cl 2 MG 11/25/2020 12:00:00 AM EST active Tizanidi ne HCl 2 MG eCW1 ([facility]) tizanidine 2 MG Oral Tablet tiZANidine HCl 2 MG tiZANidine H Cl 2 MG 11/25/2020 12:00:00 AM EST active tiZANidi ne HCl 2 MG eCW1 ([facility]) tizanidine 2 MG Oral Tablet tiZANidine HCl 2 MG tiZANidine H Cl 2 MG 11/25/2020 12:00:00 AM EST active tiZANidi ne HCl 2 MG eCW1 ([facility]) tizanidine 2 MG Oral Tablet tiZANidine HCl 2 MG tiZANidine H Cl 2 MG 11/25/2020 12:00:00 AM EST active tiZANidi ne HCl 2 MG eCW1 ([facility]) tizanidine 2 MG Oral Tablet Tizanidine HCl 2 MG Tizanidine H Cl 2 MG 11/25/2020 12:00:00 AM EST active Tizanidi ne HCl 2 MG eCW1 ([facility]) tizanidine 2 MG Oral Tablet Tizanidine HCl 2 MG Tizanidine H Cl 2 MG 11/25/2020 12:00:00 AM EST active Tizanidi ne HCl 2 MG eCW1 ([facility]) tizanidine 2 MG Oral Tablet Tizanidine HCl 2 MG Tizanidine H Cl 2 MG 11/25/2020 12:00:00 AM EST active Tizanidi ne HCl 2 MG eCW1 ([facility]) tizanidine 2 MG Oral Tablet tiZANidine HCl 2 MG tiZANidine H Cl 2 MG 11/25/2020 12:00:00 AM EST active tiZANidi ne HCl 2 MG eCW1 ([facility]) tizanidine 2 MG Oral Tablet tiZANidine HCl 2 MG tiZANidine H Cl 2 MG 11/25/2020 12:00:00 AM EST active tiZANidi ne HCl 2 MG eCW1 ([facility]) tizanidine 2 MG Oral Tablet Tizanidine HCl 2 MG Tizanidine H Cl 2 MG 11/25/2020 12:00:00 AM EST active Tizanidi ne HCl 2 MG eCW1 ([facility]) tizanidine 2 MG Oral Tablet Tizanidine HCl 2 MG Tizanidine H Cl 2 MG 11/25/2020 12:00:00 AM EST active Tizanidi ne HCl 2 MG eCW1 ([facility]) tizanidine 2 MG Oral Tablet tiZANidine HCl 2 MG tiZANidine H Cl 2 MG 11/25/2020 12:00:00 AM EST active tiZANidi ne HCl 2 MG eCW1 ([facility]) tizanidine 2 MG Oral Tablet Tizanidine HCl 2 MG Tizanidine H Cl 2 MG 11/25/2020 12:00:00 AM EST active Tizanidi ne HCl 2 MG eCW1 ([facility]) tizanidine 2 MG Oral Tablet tiZANidine HCl 2 MG tiZANidine H Cl 2 MG 11/25/2020 12:00:00 AM EST active tiZANidi ne HCl 2 MG eCW1 ([facility]) tizanidine 2 MG Oral Tablet Tizanidine HCl 2 MG Tizanidine H Cl 2 MG 11/25/2020 12:00:00 AM EST active Tizanidi ne HCl 2 MG eCW1 ([facility]) tizanidine 2 MG Oral Tablet Tizanidine HCl 2 MG Tizanidine H Cl 2 MG 11/25/2020 12:00:00 AM EST active Tizanidi ne HCl 2 MG eCW1 ([facility]) tizanidine 2 MG Oral Tablet tiZANidine HCl 2 MG tiZANidine H Cl 2 MG 11/25/2020 12:00:00 AM EST active tiZANidi ne HCl 2 MG eCW1 ([facility]) tizanidine 2 MG Oral Tablet Tizanidine HCl 2 MG Tizanidine H Cl 2 MG 11/25/2020 12:00:00 AM EST active Tizanidi ne HCl 2 MG eCW1 ([facility]) Insurance Providers Payer name Policy type / Coverage type Policy ID Covered republican ID Covered republican's relationship to han Policy Han Plan Information [facility] [id number] SP [id number] FORMERLY [facility]AN [facility] [id number] SP [id number] Medicaid S [id number] S [id number] Managed Care - Community Plan [facility] P [id number] S [id number] Medicaid S [id number] S [id number] Managed Care - Community Plan [facility] P [id number] S [id number] Managed Care - [facility] Community Plan P [id number] S [id number] [facility] [id number] SP [id number] [facility]-Medicaid [id number] [facility]-Medicaid [id number] [facility] [id number] [facility]-Medicaid [id number] [facility] [id number] ANSI-Medicaid [id number] ANSI-Medicaid [id number] ANSI-Medicaid [id number] ANSI-Medicaid [id number] ANSI-Medicaid [id number] ANSI-Medicaid [id number] ANSI-Medicaid [id number] ANSI-Medicaid [id number] ANSI-Medicaid [id number] ANSI-Medicaid [id number] ANSI-Medicaid [id number] ANSI-Medicaid [id number] ANSI-Medicaid [id number] ANSI-Medicaid [id number] ANSI-Medicaid [id number] ANSI-Medicaid [id number] ANSI-Medicaid [id number] ANSI-Medicaid [id number] ANSI-Medicaid [id number] ANSI-Medicaid [id number] ANSI-Medicaid [id number] ANSI-Medicaid [id number] ANSI-Medicaid [id number] ANSI-Medicaid [id number] ANSI-Medicaid [id number] ANSI-Medicaid [id number] ANSI-Medicaid [id number] ANSI-Medicaid [id number] ANSI-Medicaid [id number] ANSI-Medicaid [id number] ANSI-Medicaid [id number] ANSI-Medicaid [id number] ANSI-Medicaid [id number] ANSI-Medicaid [id number] [employer] COMMUNITY PLAN XIX [id number] ANSI-Medicaid [id number] ANSI-Medicaid [id number] ANSI-Medicaid [id number] ANSI-Medicaid [id number] ANSI-Medicaid [id number] ANSI-Medicaid [id number] ANSI-Medicaid [id number] ANSI-Medicaid [id number] ANSI-Medicaid [id number] ANSI-Medicaid [id number] ANSI-Medicaid [id number] ANSI-Medicaid [id number] ANSI-Medicaid [id number] ANSI-Medicaid [id number] ANSI-Medicaid [id number] ANSI-Medicaid [id number] ANSI-Medicaid [id number] ANSI-Medicaid [id number] ANSI-Medicaid [id number] ANSI-Medicaid [id number] ANSI-Medicaid [id number] ANSI-Medicaid [id number] ANSI-Medicaid [id number] ANSI-Medicaid [id number] ANSI-Medicaid [id number] ANSI-Medicaid [id number] ANSI-Medicaid [id number] ANSI-Medicaid [id number] ANSI-Medicaid [id number] ANSI-Medicaid [id number] [facility]) O [id number] S [id number] MEDICAID - O/P EMERGENCY ROOM [id number] BLUE [place]OSS [place] PLAN [id number] SP [id number] 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 INS NO FAULT CLM#[id number] CLM#[id number] SELF PAY UNAVAILABLE SP UNA[place]ILA BLE BCBS [place] PPO 302/307 [id number] SP [id number] HMO BLUE [id number] SP [id number] UNHC COMMUNITY PLAN MCDHMO [id number] SP [id number] UNHC COMMUNITY PLAN MCDHMO [id number] SP [id number] UNHC AMERICHOICE XIX -HMO [id number] ANSI-Medicaid [id number] ANSI-Medicaid [id number] ANSI-Medicaid [id number] ANSI-Medicaid [id number] ANSI-Medicaid [id number] Problems, Conditions, and Diagnoses Code Display Name Description Problem Type Effective Dates Data Source(s) M54.42 [id number] Acute midline low back pain with left-shereen ed sciatica Problem 11/25/2020 12:00:00 AM EST eCW1 ([facility]) K59.00 [id number] Constipation, unspecified constipation ty pe Problem 10/02/2020 12:00:00 AM EST eCW1 ([facility]) Surgeries/Procedures No Information Results No Information Social History Code Duration Value Status Description Data Source(s ) Smoking 11/25/2020 12:00:00 AM EST Current Smoker completed Curre nt Smoker eCW1 ([facility]) Smoking 11/25/2020 12:00:00 AM EST Current Smoker completed Curre nt Smoker eCW1 ([facility]) Smoking 11/25/2020 12:00:00 AM EST Current Smoker completed Curre nt Smoker eCW1 ([facility]) Smoking 11/25/2020 12:00:00 AM EST Current Smoker completed Curre nt Smoker eCW1 ([facility]) Smoking 11/25/2020 12:00:00 AM EST Current Smoker completed Curre nt Smoker eCW1 ([facility]) Smoking 11/25/2020 12:00:00 AM EST Current Smoker completed Curre nt Smoker eCW1 ([facility]) Smoking 11/25/2020 12:00:00 AM EST Current Smoker completed Curre nt Smoker eCW1 ([facility]) Smoking 11/25/2020 12:00:00 AM EST Current Smoker completed Curre nt Smoker eCW1 ([facility]) Smoking 11/25/2020 12:00:00 AM EST Current Smoker completed Curre nt Smoker eCW1 ([facility]) Smoking 11/25/2020 12:00:00 AM EST Current Smoker completed Curre nt Smoker eCW1 ([facility]) Smoking 11/25/2020 12:00:00 AM EST Current Smoker completed Curre nt Smoker eCW1 ([facility]) Smoking 11/25/2020 12:00:00 AM EST Current Smoker completed Curre nt Smoker eCW1 ([facility]) Smoking 11/25/2020 12:00:00 AM EST Current Smoker completed Curre nt Smoker eCW1 ([facility]) Smoking 11/25/2020 12:00:00 AM EST Current Smoker completed Curre nt Smoker eCW1 ([facility]) Smoking 11/25/2020 12:00:00 AM EST Current Smoker completed Curre nt Smoker eCW1 ([facility]) Smoking 11/25/2020 12:00:00 AM EST Current Smoker completed Curre nt Smoker eCW1 ([facility]) Smoking 11/25/2020 12:00:00 AM EST Current Smoker completed Curre nt Smoker eCW1 ([facility]) Smoking 11/25/2020 12:00:00 AM EST Current Smoker completed Curre nt Smoker eCW1 ([facility]) Smoking 11/25/2020 12:00:00 AM EST Current Smoker completed Curre nt Smoker eCW1 ([facility]) Smoking 11/25/2020 12:00:00 AM EST Current Smoker completed Curre nt Smoker eCW1 ([facility]) Smoking 10/02/2020 12:00:00 AM EST Current Smoker completed Curre nt Smoker eCW1 ([facility]) Vital Signs ID Date Data Source UNK Name Value Range Interpretation Code Description Data Source(s) Body height 64.5 [in_i] 64.5 [in_i] eCW1 ([facility]) Body weight 124 [lb_av] 124 [lb_av] eCW1 ([facility]) Heart rate 93 /min 93 /min W1 ([facility]) Body mass index (BMI) [Ratio] 20.95 kg/m2 20.95 kg/m2 W1 ([facility]) Body temperature 98.8 [degF] 98.8 [degF] eCW1 ( [facility]) Systolic blood pressure 142 mm[Hg] 142 mm[Hg] e CW1 ([facility]) Diastolic blood pressure 68 mm[Hg] 68 mm[Hg] eCW1 ([facility]) Respiratory rate 18 /min 18 /min eCW1 ([facility]) Body weight 123 [lb_av] 123 [lb_av] eCW1 ([facility]) Body height 64.5 [in_i] 64.5 [in_i] eCW1 ([facility]) Body mass index (BMI) [Ratio] 20.78 kg/m2 20.78 kg/m2 eCW1 ([facility]) Heart rate 88 /min 88 /min eCW1 ([facility]) Respiratory rate 18 /min 18 /min eCW1 ([facility]) Body temperature 98.3 [degF] 98.3 [degF] eCW1 ( [facility]) Systolic blood pressure 138 mm[Hg] 138 mm[Hg] e CW1 ([facility]) Diastolic blood pressure 70 mm[Hg] 70 mm[Hg] eCW1 ([facility]) Patient Treatment Plan of Care Planned Activity Planned Date Details Description Data Source (s) ferrous sulfate 325 MG Oral Tablet 12/03/2020 12:00:00 AM EST eCW1 ([facility]) ferrous sulfate 325 MG Oral Tablet 12/03/2020 12:00:00 AM EST eCW1 ([facility]) ferrous sulfate 325 MG Oral Tablet 12/03/2020 12:00:00 AM EST eCW1 ([facility]) ferrous sulfate 325 MG Oral Tablet 12/03/2020 12:00:00 AM EST eCW1 ([facility]) ferrous sulfate 325 MG Oral Tablet 12/03/2020 12:00:00 AM EST eCW1 ([facility]) ferrous sulfate 325 MG Oral Tablet 12/03/2020 12:00:00 AM EST eCW1 ([facility]) ferrous sulfate 325 MG Oral Tablet 12/03/2020 12:00:00 AM EST eCW1 ([facility]) ferrous sulfate 325 MG Oral Tablet 12/03/2020 12:00:00 AM EST eCW1 ([facility]) ferrous sulfate 325 MG Oral Tablet 12/03/2020 12:00:00 AM EST eCW1 ([facility]) ferrous sulfate 325 MG Oral Tablet 12/03/2020 12:00:00 AM EST eCW1 ([facility]) ferrous sulfate 325 MG Oral Tablet 12/03/2020 12:00:00 AM EST eCW1 ([facility]) ferrous sulfate 325 MG Oral Tablet 12/03/2020 12:00:00 AM EST eCW1 ([facility]) ferrous sulfate 325 MG Oral Tablet 12/03/2020 12:00:00 AM EST eCW1 ([facility]) ferrous sulfate 325 MG Oral Tablet 12/03/2020 12:00:00 AM EST eCW1 ([facility]) ferrous sulfate 325 MG Oral Tablet 12/03/2020 12:00:00 AM EST eCW1 ([facility]) ferrous sulfate 325 MG Oral Tablet 12/03/2020 12:00:00 AM EST eCW1 ([facility]) ferrous sulfate 325 MG Oral Tablet 12/03/2020 12:00:00 AM EST eCW1 ([facility]) ferrous sulfate 325 MG Oral Tablet 12/03/2020 12:00:00 AM EST eCW1 ([facility]) ferrous sulfate 325 MG Oral Tablet 12/03/2020 12:00:00 AM EST eCW1 ([facility]) tizanidine 2 MG Oral Tablet 11/25/2020 12:00:00 AM EST eCW1 ([facility]) tizanidine 2 MG Oral Tablet 11/25/2020 12:00:00 AM EST eCW1 ([facility]) tizanidine 2 MG Oral Tablet 11/25/2020 12:00:00 AM EST eCW1 ([facility]) tizanidine 2 MG Oral Tablet 11/25/2020 12:00:00 AM EST eCW1 ([facility]) tizanidine 2 MG Oral Tablet 11/25/2020 12:00:00 AM EST eCW1 ([facility]) tizanidine 2 MG Oral Tablet 11/25/2020 12:00:00 AM EST eCW1 ([facility]) tizanidine 2 MG Oral Tablet 11/25/2020 12:00:00 AM EST eCW1 ([facility]) tizanidine 2 MG Oral Tablet 11/25/2020 12:00:00 AM EST eCW1 ([facility]) tizanidine 2 MG Oral Tablet 11/25/2020 12:00:00 AM EST eCW1 ([facility]) tizanidine 2 MG Oral Tablet 11/25/2020 12:00:00 AM EST eCW1 ([facility]) tizanidine 2 MG Oral Tablet 11/25/2020 12:00:00 AM EST eCW1 ([facility]) tizanidine 2 MG Oral Tablet 11/25/2020 12:00:00 AM EST eCW1 ([facility]) tizanidine 2 MG Oral Tablet 11/25/2020 12:00:00 AM EST eCW1 ([facility]) tizanidine 2 MG Oral Tablet 11/25/2020 12:00:00 AM EST eCW1 ([facility]) tizanidine 2 MG Oral Tablet 11/25/2020 12:00:00 AM EST eCW1 ([facility]) tizanidine 2 MG Oral Tablet 11/25/2020 12:00:00 AM EST eCW1 ([facility]) tizanidine 2 MG Oral Tablet 11/25/2020 12:00:00 AM EST eCW1 ([facility]) tizanidine 2 MG Oral Tablet 11/25/2020 12:00:00 AM EST eCW1 ([facility]) tizanidine 2 MG Oral Tablet 11/25/2020 12:00:00 AM EST eCW1 ([facility]) tizanidine 2 MG Oral Tablet 11/25/2020 12:00:00 AM EST eCW1 ([facility])
--- OUTSIDE RECORDS SUMMARY | 2021-09-05 06:48 | CCD ---
Author Author [facility] Address Unknown Phone Unavailable Support Name Relationship Address Phone Westley TEJChari Next Of Kin [address] [place] [address] [place] Next Of Kin Unknown Unavailable NONE, PATIENT PER Next Of Kin - -, - Unavailable Lorenza RENAE, Krystal Next Of Kin [address] [place], [place] [id number] Orlando BURNHAM, Joanna Next Of Kin [address] [place] [address] 315 UE Next Of Kin Unknown Unavailable UNEMPLOYED Next Of Kin Unknown ESMER TITUS Next Of Kin [address] [place] [address] ERNESTO TITUS SR Next Of Kin Unknown Ernesto Titus [address] [place] [address] Unavailable Re-disclosure Warning The records that you [...] is protected by Article 27-F of the [facility] Public Health law. If you continue you may have access to information: Regarding HIV / AIDS; Provided by facilities licensed or operated by the [facility] Office of Mental Health; or Provided by the [facility] Office for People With Developmental Disabilities. If such information is present, then the following [facility] mandated warning applies: This information has been [...] law may result in a fine or detention sentence or both. A general authorization for the release of medical or other information is NOT sufficient authorization for further disc losure. Encounters Encounter Providers Location Date Indications Data Source(s ) Unknown [address] [facility] [id number] 07/24/2021 12:00:00 AM EDT eCW1 ([facility]) Unknown [address] [facility] [address] 07/20/2021 12:00:00 AM EDT eCW1 ([facility]) Unknown [address] [facility] [id number] 07/04/2021 12:00:00 AM EDT eCW1 ([facility]) Unknown [address] [facility] [address] 06/30/2021 12:00:00 AM EDT eCW1 ([facility]) Unknown [address] [facility] [address] 06/26/2021 12:00:00 AM EDT eCW1 ([facility]) Unknown [address] [facility] [id number] 06/25/2021 12:00:00 AM EDT eCW1 ([facility]) Unknown [address] [facility] [id number] 06/24/2021 12:00:00 AM EDT eCW1 ([facility]) Unknown [address] [facility] Y [address] 06/20/2021 12:00:00 AM EDT eCW1 ([facility]) Unknown [address] [facility] [place] [address] 05/29/2021 12:00:00 AM EDT eCW1 ([facility]) Unknown [address] [facility] [place] [address] 05/05/2021 12:00:00 AM EDT eCW1 ([facility]) Unknown [address] [facility] [place] [address] 03/03/2021 12:00:00 AM EDT eCW1 ([facility]) Unknown [address] [facility] [place] [address] 01/26/2021 12:00:00 AM EDT eCW1 ([facility]) Unknown [address] [facility] [place] [address] 01/21/2021 12:00:00 AM EDT eCW1 ([facility]) Unknown [address] [facility] [place] [address] 01/05/2021 12:00:00 AM EST eCW1 ([facility]) Unknown [address] [facility] [place] [address] 12/20/2020 12:00:00 AM EST eCW1 ([facility]) Unknown [address] [facility] [place] [address] 12/10/2020 12:00:00 AM EST eCW1 ([facility]) Unknown [address] [facility] [place] [address] 12/10/2020 12:00:00 AM EST eCW1 ([facility]) Unknown [address] [facility] [place] [address] 12/10/2020 12:00:00 AM EST eCW1 ([facility]) Outpatient [address] [facility] [place] [address] 11/25/2020 12:00:00 AM EST eCW1 ([facility]) Unknown [address] [facility] [place] [address] 11/25/2020 12:00:00 AM EST eCW1 ([facility]) Outpatient [address] [facility] [place] [address] 10/02/2020 12:00:00 AM EST eCW1 ([facility]) Unknown [address] [facility] [place] [address] 09/16/2020 12:00:00 AM EST eCW1 ([facility]) Medications Medication Brand Name Start Date Product [...] active Ferrous Sulfate 325 (65 Fe) MG [facility] ([facility]) ferrous sulfate 325 MG Oral Tablet Ferrous Sulfate 325 (65 Fe) MG Ferrous Sulfate 325 (65 Fe) MG 12/03/2020 12:00:00 AM EST 1.0 {tablet} active Ferrous Sulfate 325 (65 Fe) MG eCW1 ([facility]) ferrous sulfate 325 MG Oral Tablet Ferrous Sulfate 325 (65 Fe) MG Ferrous Sulfate 325 (65 Fe) MG 12/03/2020 12:00:00 AM EST 1.0 {tablet} active Ferrous Sulfate 325 (65 Fe) MG W1 ([facility]) ferrous sulfate 325 MG Oral Tablet Ferrous Sulfate 325 (65 Fe) MG Ferrous Sulfate 325 (65 Fe) MG 12/03/2020 12:00:00 AM EST 1.0 {tablet} active Ferrous Sulfate 325 (65 Fe) MG eCW1 ([facility]) ferrous sulfate 325 MG Oral Tablet Ferrous Sulfate 325 (65 Fe) MG Ferrous Sulfate 325 (65 Fe) MG 12/03/2020 12:00:00 AM EST 1.0 {tablet} active Ferrous Sulfate 325 (65 Fe) MG eCW1 ([facility]) ferrous sulfate 325 MG Oral Tablet Ferrous Sulfate 325 (65 Fe) MG Ferrous Sulfate 325 (65 Fe) MG 12/03/2020 12:00:00 AM EST 1.0 {tablet} active Ferrous Sulfate 325 (65 Fe) MG eCW1 ([facility]) ferrous sulfate 325 MG Oral Tablet Ferrous Sulfate 325 (65 Fe) MG Ferrous Sulfate 325 (65 Fe) MG 12/03/2020 12:00:00 AM EST 1.0 {tablet} active Ferrous Sulfate 325 (65 Fe) MG eCW1 ([facility]) ferrous sulfate 325 MG Oral Tablet Ferrous Sulfate 325 (65 Fe) MG Ferrous Sulfate 325 (65 Fe) MG 12/03/2020 12:00:00 AM EST 1.0 {tablet} active Ferrous Sulfate 325 (65 Fe) MG eCW1 ([facility]) ferrous sulfate 325 MG Oral Tablet Ferrous Sulfate 325 (65 Fe) MG Ferrous Sulfate 325 (65 Fe) MG 12/03/2020 12:00:00 AM EST 1.0 {tablet} active Ferrous Sulfate 325 (65 Fe) MG eCW1 ([facility]) ferrous sulfate 325 MG Oral Tablet Ferrous Sulfate 325 (65 Fe) MG Ferrous Sulfate 325 (65 Fe) MG 12/03/2020 12:00:00 AM EST 1.0 {tablet} active Ferrous Sulfate 325 (65 Fe) MG eCW1 ([facility]) ferrous sulfate 325 MG Oral Tablet Ferrous Sulfate 325 (65 Fe) MG Ferrous Sulfate 325 (65 Fe) MG 12/03/2020 12:00:00 AM EST 1.0 {tablet} active Ferrous Sulfate 325 (65 Fe) MG eCW1 ([facility]) ferrous sulfate 325 MG Oral Tablet Ferrous Sulfate 325 (65 Fe) MG Ferrous Sulfate 325 (65 Fe) MG 12/03/2020 12:00:00 AM EST 1.0 {tablet} active Ferrous Sulfate 325 (65 Fe) MG eCW1 ([facility]) ferrous sulfate 325 MG Oral Tablet Ferrous Sulfate 325 (65 Fe) MG Ferrous Sulfate 325 (65 Fe) MG 12/03/2020 12:00:00 AM EST 1.0 {tablet} active Ferrous Sulfate 325 (65 Fe) MG eCW1 ([facility]) ferrous sulfate 325 MG Oral Tablet Ferrous Sulfate 325 (65 Fe) MG Ferrous Sulfate 325 (65 Fe) MG 12/03/2020 12:00:00 AM EST 1.0 {tablet} active Ferrous Sulfate 325 (65 Fe) MG eCW1 ([facility]) ferrous sulfate 325 MG Oral Tablet Ferrous Sulfate 325 (65 Fe) MG Ferrous Sulfate 325 (65 Fe) MG 12/03/2020 12:00:00 AM EST 1.0 {tablet} active Ferrous Sulfate 325 (65 Fe) MG eCW1 ([facility]) ferrous sulfate 325 MG Oral Tablet Ferrous Sulfate 325 (65 Fe) MG Ferrous Sulfate 325 (65 Fe) MG 12/03/2020 12:00:00 AM EST 1.0 {tablet} active Ferrous Sulfate 325 (65 Fe) MG eCW1 ([facility]) ferrous sulfate 325 MG Oral Tablet Ferrous Sulfate 325 (65 Fe) MG Ferrous Sulfate 325 (65 Fe) MG 12/03/2020 12:00:00 AM EST 1.0 {tablet} active Ferrous Sulfate 325 (65 Fe) MG eCW1 ([facility]) ferrous sulfate 325 MG Oral Tablet Ferrous Sulfate 325 (65 Fe) MG Ferrous Sulfate 325 (65 Fe) MG 12/03/2020 12:00:00 AM EST 1.0 {tablet} active Ferrous Sulfate 325 (65 Fe) MG eCW1 ([facility]) ferrous sulfate 325 MG Oral Tablet Ferrous Sulfate 325 (65 Fe) MG Ferrous Sulfate 325 (65 Fe) MG 12/03/2020 12:00:00 AM EST 1.0 {tablet} active Ferrous Sulfate 325 (65 Fe) MG eCW1 ([facility]) tizanidine 2 MG Oral Tablet TIZANIDINE HCL 11/26/2020 12:00:00 AM EST tablet 30 TAKE 1-2 TABLETS BY MOUTH NEEDED BEFORE BEDTIME RAMYA E 1-2 TABLETS BY MOUTH NEEDED BEFORE BEDTIME SOLD: 11/26/2020 [facility] tizanidine 2 MG Oral Tablet tiZANidine HCl 2 MG tiZANidine H Cl 2 MG 11/25/2020 12:00:00 AM EST active tiZANidi ne HCl 2 MG eCW1 ([facility]) tizanidine 2 MG Oral Tablet tiZANidine HCl 2 MG tiZANidine H Cl 2 MG 11/25/2020 12:00:00 AM EST active tiZANidi ne HCl 2 MG eCW1 ([facility]) tizanidine 2 MG Oral Tablet Tizanidine HCl 2 MG Tizanidine H Cl 2 MG 11/25/2020 12:00:00 AM EST active Tizanidi ne HCl 2 MG eCW1 ([facility]) tizanidine 2 MG Oral Tablet tiZANidine HCl 2 MG tiZANidine H Cl 2 MG 11/25/2020 12:00:00 AM EST active tiZANidi ne HCl 2 MG eCW1 ([facility]) tizanidine 2 MG Oral Tablet tiZANidine HCl 2 MG tiZANidine H Cl 2 MG 11/25/2020 12:00:00 AM EST active tiZANidi ne HCl 2 MG eCW1 ([facility]) tizanidine 2 MG Oral Tablet tiZANidine HCl 2 MG tiZANidine H Cl 2 MG 11/25/2020 12:00:00 AM EST active tiZANidi ne HCl 2 MG eCW1 ([facility]) tizanidine 2 MG Oral Tablet Tizanidine HCl 2 MG Tizanidine H Cl 2 MG 11/25/2020 12:00:00 AM EST active Tizanidi ne HCl 2 MG eCW1 ([facility]) tizanidine 2 MG Oral Tablet Tizanidine HCl 2 MG Tizanidine H Cl 2 MG 11/25/2020 12:00:00 AM EST active Tizanidi ne HCl 2 MG eCW1 ([facility]) tizanidine 2 MG Oral Tablet Tizanidine HCl 2 MG Tizanidine H Cl 2 MG 11/25/2020 12:00:00 AM EST active Tizanidi ne HCl 2 MG eCW1 ([facility]) tizanidine 2 MG Oral Tablet tiZANidine HCl 2 MG tiZANidine H Cl 2 MG 11/25/2020 12:00:00 AM EST active tiZANidi ne HCl 2 MG eCW1 ([facility]) tizanidine 2 MG Oral Tablet tiZANidine HCl 2 MG tiZANidine H Cl 2 MG 11/25/2020 12:00:00 AM EST active tiZANidi ne HCl 2 MG eCW1 ([facility]) tizanidine 2 MG Oral Tablet Tizanidine HCl 2 MG Tizanidine H Cl 2 MG 11/25/2020 12:00:00 AM EST active Tizanidi ne HCl 2 MG eCW1 ([facility]) tizanidine 2 MG Oral Tablet Tizanidine HCl 2 MG Tizanidine H Cl 2 MG 11/25/2020 12:00:00 AM EST active Tizanidi ne HCl 2 MG eCW1 ([facility]) tizanidine 2 MG Oral Tablet tiZANidine HCl 2 MG tiZANidine H Cl 2 MG 11/25/2020 12:00:00 AM EST active tiZANidi ne HCl 2 MG eCW1 ([facility]) tizanidine 2 MG Oral Tablet Tizanidine HCl 2 MG Tizanidine H Cl 2 MG 11/25/2020 12:00:00 AM EST active Tizanidi ne HCl 2 MG eCW1 ([facility]) tizanidine 2 MG Oral Tablet tiZANidine HCl 2 MG tiZANidine H Cl 2 MG 11/25/2020 12:00:00 AM EST active tiZANidi ne HCl 2 MG eCW1 ([facility]) tizanidine 2 MG Oral Tablet Tizanidine HCl 2 MG Tizanidine H Cl 2 MG 11/25/2020 12:00:00 AM EST active Tizanidi ne HCl 2 MG eCW1 ([facility]) tizanidine 2 MG Oral Tablet Tizanidine HCl 2 MG Tizanidine H Cl 2 MG 11/25/2020 12:00:00 AM EST active Tizanidi ne HCl 2 MG eCW1 ([facility]) tizanidine 2 MG Oral Tablet tiZANidine HCl 2 MG tiZANidine H Cl 2 MG 11/25/2020 12:00:00 AM EST active tiZANidi ne HCl 2 MG eCW1 ([facility]) tizanidine 2 MG Oral Tablet Tizanidine HCl 2 MG Tizanidine H Cl 2 MG 11/25/2020 12:00:00 AM EST active Tizanidi ne HCl 2 MG eCW1 ([facility]) Insurance Providers Payer name Policy type / Coverage type Policy ID Covered libertarian ID Covered libertarian's relationship to han Policy Han Plan Information FOR[facility]LY [facility] [id number] [facility] [id number] FORMERLY [facility] COMMUNITY PLAN [facility] [id number] SP [id number] Medicaid S [id number] S [id number] Managed Care - Community Plan [facility] P [id number] S [id number] Medicaid S [id number] S [id number] Managed Care - Community Plan [facility] P [id number] S [id number] Managed Care - [facility] Community Plan P [id number] S [id number] FORMERLY [facility] [id number] SP [id number] [facility]-Medicaid [id number] [facility]-Medicaid [id number] [facility] [id number] [facility]-Medicaid [id number] [facility] [id number] ANSI-Medicaid [id number] ANSI-Medicaid [id number] ANSI-Medicaid [id number] ANSI-Medicaid [id number] ANSI-Medicaid [id number] ANSI-Medicaid [id number] ANSI-Medicaid [id number] ANSI-Medicaid [id number] ANSI-Medicaid [id number] ANSI-Medicaid [id number] ANSI-Medicaid [id number] ANSI-Medicaid [id number] ANSI-Medicaid [id number] ANSI-Medicaid [id number] ANSI-Medicaid [id number] ANSI-Medicaid [id number] ANSI-Medicaid [id number] ANSI-Medicaid [id number] ANSI-Medicaid [id number] ANSI-Medicaid [id number] ANSI-Medicaid [id number] ANSI-Medicaid [id number] ANSI-Medicaid [id number] ANSI-Medicaid [id number] ANSI-Medicaid [id number] ANSI-Medicaid [id number] ANSI-Medicaid [id number] ANSI-Medicaid [id number] ANSI-Medicaid [id number] ANSI-Medicaid [id number] ANSI-Medicaid [id number] ANSI-Medicaid [id number] ANSI-Medicaid [id number] ANSI-Medicaid [id number] UN COMMUNITY PLAN XIX [id number] ANSI-Medicaid [id number] ANSI-Medicaid [id number] ANSI-Medicaid [id number] ANSI-Medicaid [id number] ANSI-Medicaid [id number] ANSI-Medicaid [id number] ANSI-Medicaid [id number] ANSI-Medicaid [id number] ANSI-Medicaid [id number] ANSI-Medicaid [id number] ANSI-Medicaid [id number] ANSI-Medicaid [id number] ANSI-Medicaid [id number] ANSI-Medicaid [id number] ANSI-Medicaid [id number] ANSI-Medicaid [id number] ANSI-Medicaid [id number] ANSI-Medicaid [id number] ANSI-Medicaid [id number] ANSI-Medicaid [id number] ANSI-Medicaid [id number] ANSI-Medicaid [id number] ANSI-Medicaid [id number] ANSI-Medicaid [id number] ANSI-Medicaid [id number] ANSI-Medicaid [id number] ANSI-Medicaid [id number] ANSI-Medicaid [id number] ANSI-Medicaid [id number] ANSI-Medicaid [id number] [facility]) O [id number] S [id number] MEDICAID - O/P EMERGENCY ROOM [id number] BLUE [place] PLAN [id number] SP [id number] [employer] INS NO FAULT CLM#[id number] CLM#[id number] SELF PAY UNAVAILABLE SP UNAVAILA BLE BCBS [place] PPO 302/307 [id number] SP [id number] HMO BLUE [id number] SP [id number] UNHC COMMUNITY PLAN MCDHMO [id number] SP [id number] UNHC COMMUNITY PLAN MCDHMO [id number] SP [id number] UNHC AMERICHOICE XIX -HMO [id number] 18 [id number] ANSI-Medicaid [id number] ANSI-Medicaid [id number] ANSI-Medicaid [id number] ANSI-Medicaid [id number] ANSI-Medicaid [id number] Problems, Conditions, and Diagnoses Code Display Name Description Problem Type Effective Dates Data Source(s) M54.42 [id number] Acute midline low back pain with left-shereen ed sciatica Problem 11/25/2020 12:00:00 AM EST eCW1 ([facility]) K59.00 [id number] Constipation, unspecified constipation ty pe Problem 10/02/2020 12:00:00 AM EST eCW1 ([facility]) Surgeries/Procedures No Information Results No Information Social History Code Duration Value Status Description Data Source(s ) Smoking 11/25/2020 12:00:00 AM EST Current Smoker completed Curre nt Smoker eCW1 ([facility]) Smoking 11/25/2020 12:00:00 AM EST Current Smoker completed Curre nt Smoker eCW1 ([facility]) Smoking 11/25/2020 12:00:00 AM EST Current Smoker completed Curre nt Smoker eCW1 ([facility]) Smoking 11/25/2020 12:00:00 AM EST Current Smoker completed Curre nt Smoker eCW1 ([facility]) Smoking 11/25/2020 12:00:00 AM EST Current Smoker completed Curre nt Smoker eCW1 ([facility]) Smoking 11/25/2020 12:00:00 AM EST Current Smoker completed Curre nt Smoker eCW1 ([facility]) Smoking 11/25/2020 12:00:00 AM EST Current Smoker completed Curre nt Smoker eCW1 ([facility]) Smoking 11/25/2020 12:00:00 AM EST Current Smoker completed Curre nt Smoker eCW1 ([facility]) Smoking 11/25/2020 12:00:00 AM EST Current Smoker completed Curre nt Smoker eCW1 ([facility]) Smoking 11/25/2020 12:00:00 AM EST Current Smoker completed Curre nt Smoker eCW1 ([facility]) Smoking 11/25/2020 12:00:00 AM EST Current Smoker completed Curre nt Smoker eCW1 ([facility]) Smoking 11/25/2020 12:00:00 AM EST Current Smoker completed Curre nt Smoker eCW1 ([facility]) Smoking 11/25/2020 12:00:00 AM EST Current Smoker completed Curre nt Smoker eCW1 ([facility]) Smoking 11/25/2020 12:00:00 AM EST Current Smoker completed Curre nt Smoker eCW1 ([facility]) Smoking 11/25/2020 12:00:00 AM EST Current Smoker completed Curre nt Smoker eCW1 ([facility]) Smoking 11/25/2020 12:00:00 AM EST Current Smoker completed Curre nt Smoker eCW1 ([facility]) Smoking 11/25/2020 12:00:00 AM EST Current Smoker completed Curre nt Smoker eCW1 ([facility]) Smoking 11/25/2020 12:00:00 AM EST Current Smoker completed Curre nt Smoker eCW1 ([facility]) Smoking 11/25/2020 12:00:00 AM EST Current Smoker completed Curre nt Smoker eCW1 ([facility]) Smoking 11/25/2020 12:00:00 AM EST Current Smoker completed Curre nt Smoker eCW1 ([facility]) Smoking 10/02/2020 12:00:00 AM EST Current Smoker completed Curre nt Smoker eCW1 ([facility]) Vital Signs ID Date Data Source UNK Name Value Range Interpretation Code Description Data Source(s) Body weight 124 [lb_av] 124 [lb_av] eCW1 ([facility]) Body height 64.5 [in_i] 64.5 [in_i] eCW1 ([facility]) Heart rate 93 /min 93 /min eCW1 ([facility]) Body mass index (BMI) [Ratio] 20.95 kg/m2 20.95 kg/m2 eCW1 ([facility]) Respiratory rate 18 /min 18 /min eCW1 ([facility]) Body temperature 98.8 [degF] 98.8 [degF] eCW1 ( [facility]) Systolic blood pressure 142 mm[Hg] 142 mm[Hg] e CW1 ([facility]) Diastolic blood pressure 68 mm[Hg] 68 mm[Hg] eCW1 ([facility]) Body weight 123 [lb_av] 123 [lb_av] eCW1 ([facility]) Body height 64.5 [in_i] 64.5 [in_i] eCW1 ([facility]) Body mass index (BMI) [Ratio] 20.78 kg/m2 20.78 kg/m2 eCW1 ([facility]) Heart rate 88 /min 88 /min eCW1 ([facility]) Respiratory rate 18 /min 18 /min eCW1 ([facility]) Body temperature 98.3 [degF] 98.3 [degF] eCW1 ( [facility]) Systolic blood pressure 138 mm[Hg] 138 mm[Hg] e CW1 ([facility]) Diastolic blood pressure 70 mm[Hg] 70 mm[Hg] eCW1 ([facility]) Patient Treatment Plan of Care Planned Activity Planned Date Details Description Data Source (s) ferrous sulfate 325 MG Oral Tablet 12/03/2020 12:00:00 AM EST eCW1 ([facility]) ferrous sulfate 325 MG Oral Tablet 12/03/2020 12:00:00 AM EST eCW1 ([facility]) ferrous sulfate 325 MG Oral Tablet 12/03/2020 12:00:00 AM EST eCW1 ([facility]) ferrous sulfate 325 MG Oral Tablet 12/03/2020 12:00:00 AM EST eCW1 ([facility]) ferrous sulfate 325 MG Oral Tablet 12/03/2020 12:00:00 AM EST eCW1 ([facility]) ferrous sulfate 325 MG Oral Tablet 12/03/2020 12:00:00 AM EST eCW1 ([facility]) ferrous sulfate 325 MG Oral Tablet 12/03/2020 12:00:00 AM EST eCW1 ([facility]) ferrous sulfate 325 MG Oral Tablet 12/03/2020 12:00:00 AM EST eCW1 ([facility]) ferrous sulfate 325 MG Oral Tablet 12/03/2020 12:00:00 AM EST eCW1 ([facility]) ferrous sulfate 325 MG Oral Tablet 12/03/2020 12:00:00 AM EST eCW1 ([facility]) ferrous sulfate 325 MG Oral Tablet 12/03/2020 12:00:00 AM EST eCW1 ([facility]) ferrous sulfate 325 MG Oral Tablet 12/03/2020 12:00:00 AM EST eCW1 ([facility]) ferrous sulfate 325 MG Oral Tablet 12/03/2020 12:00:00 AM EST eCW1 ([facility]) ferrous sulfate 325 MG Oral Tablet 12/03/2020 12:00:00 AM EST eCW1 ([facility]) ferrous sulfate 325 MG Oral Tablet 12/03/2020 12:00:00 AM EST eCW1 ([facility]) ferrous sulfate 325 MG Oral Tablet 12/03/2020 12:00:00 AM EST eCW1 ([facility]) ferrous sulfate 325 MG Oral Tablet 12/03/2020 12:00:00 AM EST eCW1 ([facility]) ferrous sulfate 325 MG Oral Tablet 12/03/2020 12:00:00 AM EST eCW1 ([facility]) ferrous sulfate 325 MG Oral Tablet 12/03/2020 12:00:00 AM EST eCW1 ([facility]) tizanidine 2 MG Oral Tablet 11/25/2020 12:00:00 AM EST eCW1 ([facility]) tizanidine 2 MG Oral Tablet 11/25/2020 12:00:00 AM EST eCW1 ([facility]) tizanidine 2 MG Oral Tablet 11/25/2020 12:00:00 AM EST eCW1 ([facility]) tizanidine 2 MG Oral Tablet 11/25/2020 12:00:00 AM EST eCW1 ([facility]) tizanidine 2 MG Oral Tablet 11/25/2020 12:00:00 AM EST eCW1 ([facility]) tizanidine 2 MG Oral Tablet 11/25/2020 12:00:00 AM EST eCW1 ([facility]) tizanidine 2 MG Oral Tablet 11/25/2020 12:00:00 AM EST eCW1 ([facility]) tizanidine 2 MG Oral Tablet 11/25/2020 12:00:00 AM EST eCW1 ([facility]) tizanidine 2 MG Oral Tablet 11/25/2020 12:00:00 AM EST eCW1 ([facility]) tizanidine 2 MG Oral Tablet 11/25/2020 12:00:00 AM EST eCW1 ([facility]) tizanidine 2 MG Oral Tablet 11/25/2020 12:00:00 AM EST eCW1 ([facility]) tizanidine 2 MG Oral Tablet 11/25/2020 12:00:00 AM EST eCW1 ([facility]) tizanidine 2 MG Oral Tablet 11/25/2020 12:00:00 AM EST eCW1 ([facility]) tizanidine 2 MG Oral Tablet 11/25/2020 12:00:00 AM EST eCW1 ([facility]) tizanidine 2 MG Oral Tablet 11/25/2020 12:00:00 AM EST eCW1 ([facility]) tizanidine 2 MG Oral Tablet 11/25/2020 12:00:00 AM EST eCW1 ([facility]) tizanidine 2 MG Oral Tablet 11/25/2020 12:00:00 AM EST eCW1 ([facility]) tizanidine 2 MG Oral Tablet 11/25/2020 12:00:00 AM EST eCW1 ([facility]) tizanidine 2 MG Oral Tablet 11/25/2020 12:00:00 AM EST eCW1 ([facility]) tizanidine 2 MG Oral Tablet 11/25/2020 12:00:00 AM EST eCW1 ([facility])
[2021-09-05] MEDS ORDERED: diphenhydrAMINE 50MG/ML VIAL (J1200) IV ONE (07:40)
[2021-09-05] MEDS ORDERED: KETOROLAC 30 MG/ML 1ML VIAL IV ONE (07:40)
[2021-09-05] MEDS ORDERED: NS 1,000 ML IV ONE (07:40)
[2021-09-05 08:37] LABS: HEMATOCRIT 31.4 % (36.0-47.0); HEMOGLOBIN 9.1 g/dl (12.0-15.5); MEAN CORPUSCULAR HEMOGLOBIN 20.2 pg (27.0-33.0); MEAN CORPUSCULAR VOLUME 69.6 fl (80.0-96.0); PLATELET COUNT, AUTOMATED 215 10^3/uL (150-450); RED BLOOD COUNT 4.51 10^6/uL (4.00-5.40); WHITE BLOOD COUNT 5.9 10^3/uL (4.0-10.0)
[2021-09-05 09:13] LABS: BLOOD UREA NITROGEN 8 MG/DL (7-18); CALCIUM LEVEL 8.9 MG/DL (8.5-10.1); CARBON DIOXIDE LEVEL 24 MEQ/L (21-32); CHLORIDE LEVEL 112 MEQ/L (98-107); CK-MB VALUE MASS < 1.0 NG/ML (<3.6); CPK CREATINE PHOSPHOKINASE 47 U/L (26-192); CREATININE FOR GFR 0.63 MG/DL (0.55-1.30); GLOMERULAR FILTRATION RATE > 60.0 (>60); GLUCOSE, FASTING 104 MG/DL (70-100); MB/CK RELATIVE INDEX 2.13 (< OR =4); POTASSIUM SERUM 4.3 MEQ/L (3.5-5.1); SODIUM LEVEL 141 MEQ/L (136-145); TROPONIN I < 0.02 NG/ML (< 0.10)
[2021-09-05 10:33] VITALS: BP 115/62
--- NOTE | 2021-09-05 12:49 | ECGEPIP ---
[facility] - ED Test Date: 2021-09-05 Pat Name: KANDY TITUS Department: Room: - Gender: Female Reimbursement Coordinator: : [id number] Requested By: BEBETO Poe PA-C Order Number: [id number] Reading MD: Alice Zhao Measurements Intervals [place] Rate: 72 P: 47 WA: 178 QRS: -36 QRSD: 80 T: 37 QT: 406 QTc: 444 Interpretive Statements Normal sinus rhythm Left axis deviation Possible Anterior infarct , age undetermined Nonspecific ST T wave changes cw 03/23/[address] T wave changes Electronically Signed on 09-05-2021 12:48:50 EDT by Alice Zhao
== END 2021-09-05 10:43 | disposition home or self-care (01) ==
LOC: M ED 04:05
DX: F41.0 Panic disorder [episodic paroxysmal anxiety] (principal); G43.909 Migraine, unspecified, not intractable, without status migrainosus; D64.9 Anemia, unspecified; F10.10 Alcohol abuse, uncomplicated; F32.A Depression, unspecified; J45.909 Unspecified asthma, uncomplicated; Z98.51 Tubal ligation status; F17.200 Nicotine dependence, unspecified, uncomplicated; Z91.030 Bee allergy status
CPT/HCPCS: 80047; 80048; 82550; 82553; 84443; 85027; 93005; 96361; 96374; 96375; 99284; J1200; J1885

== ENCOUNTER 2021-12-25 21:15 | Emergency (ER) | payer OTHER ==
[~2021-12-25] VITALS: Ht 162.6 cm; Wt 62.0 kg
[2021-12-26] MEDS ORDERED: AUGMENTIN BID 400MG/5ML SUSP 50ML BTL PO ONE (00:15)
[2021-12-26] MEDS ORDERED: prednisoLONE (PRELONE) 15MG/5ML SYRUP UDC PO ONE (00:15)
[2021-12-26] MEDS ORDERED: PRED5SOL10 PO (00:21)
[2021-12-26] MEDS ORDERED: AUGM250S13 PO (00:21)
[2021-12-26 00:26] VITALS: BP 129/64
== END 2021-12-26 01:45 | disposition home or self-care (01) ==
LOC: M ED 21:15
DX: R51.9 Headache, unspecified (principal); J45.909 Unspecified asthma, uncomplicated; F41.8 Other specified anxiety disorders; F32.A Depression, unspecified; Z91.030 Bee allergy status

== ENCOUNTER 2023-08-02 01:56 | Emergency (ER) | payer OTHER ==
[~2023-08-02] VITALS: Ht 162.6 cm; Wt 60.3 kg
[~2023-08-02 01:56] MED LIST changes: +AUGM250S13 PO; +PRED15SO24 PO
[2023-08-02 01:59] VITALS: TEMP 98.3
[2023-08-02] MEDS ORDERED: KETOROLAC 30 MG/ML 1ML VIAL IM STA (07:04)
[2023-08-02] MEDS ORDERED: AMOX500C PO (07:06)
[2023-08-02 07:25] VITALS: BP 154/67; O2SAT 99
== END 2023-08-02 07:27 | disposition home or self-care (01) ==
LOC: M ED 01:56
DX: K02.9 Dental caries, unspecified (principal); J45.909 Unspecified asthma, uncomplicated; Z91.030 Bee allergy status; Z79.2 Long term (current) use of antibiotics; Z79.52 Long term (current) use of systemic steroids
CPT/HCPCS: 96372; 99283; J1885

== ENCOUNTER → 2023-10-13 | Outpatient (REF) | payer OTHER ==
[~2023-10-13] MED LIST changes: +AMOX500C PO
== END ==
LOC: M SFHCPLAZ 17:59
PROVIDERS: ATTEND Physician Assistant
DX: Z12.4 Encounter for screening for malignant neoplasm of cervix (principal); R87.610 Atypical squamous cells of undetermined significance on cytologic smear of cervix (ASC-US); N76.0 Acute vaginitis

== ENCOUNTER 2024-05-03 01:37 | Emergency (ER) | payer OTHER ==
[~2024-05-03] VITALS: Ht 162.6 cm; Wt 60.8 kg
[~2024-05-03 01:37] MED LIST changes: +ONDA-282 PO; -ONDA4TAB6 PO
[2024-05-03 06:05] VITALS: BP 133/71; TEMP 98.5; O2SAT 98
== END 2024-05-03 06:05 | disposition home or self-care (01) ==
LOC: M ED 01:37
DX: F41.0 Panic disorder [episodic paroxysmal anxiety] (principal); J45.909 Unspecified asthma, uncomplicated; F17.200 Nicotine dependence, unspecified, uncomplicated; Z91.030 Bee allergy status; Z79.52 Long term (current) use of systemic steroids; Z79.2 Long term (current) use of antibiotics

== ENCOUNTER → 2024-05-13 | Outpatient (CLI) | payer OTHER ==
[~2024-05-13] MED LIST changes: +SERT25TA21
[2024-05-13 15:08] LABS: BASO % 0.8 % (0.0-1.0); EOS # 0.1 10^3/uL (0.0-0.5); EOS % 1.9 % (0.0-3.0); HEMATOCRIT 31.7 % (36.0-47.0); HEMOGLOBIN 9.3 g/dl (12.0-15.5); LYMPH # 1.1 10^3/uL (1.5-5.0); LYMPH % 30.7 % (24.0-44.0); MEAN CORPUSCULAR HEMOGLOBIN 21.4 pg (27.0-33.0); MEAN CORPUSCULAR HGB CONC 29.3 g/dl (32.0-36.5); MEAN CORPUSCULAR VOLUME 72.9 fl (80.0-96.0); MONO # 0.3 10^3/uL (0.0-0.8); MONO % 9.4 % (2.0-8.0); NEUTROPHILS # 2.1 10^3/uL (1.5-8.5); NEUTROPHILS % 56.9 % (36.0-66.0); PLATELET COUNT, AUTOMATED 194 10^3/uL (150-450); RED BLOOD COUNT 4.35 10^6/uL (4.00-5.40); WHITE BLOOD COUNT 3.6 10^3/uL (4.0-10.0)
[2024-05-13 15:33] LABS: ALBUMIN 3.7 G/DL (3.2-5.2); ALKALINE PHOSPHATASE 76 U/L (46-116); ALT/SGPT 11 U/L (7.0-40); AST/SGOT < 8 U/L (<34); BILIRUBIN,TOTAL 0.3 MG/DL (0.3-1.2); BLOOD UREA NITROGEN 9 MG/DL (9-23); CALCIUM LEVEL 9.3 MG/DL (8.5-10.1); CARBON DIOXIDE LEVEL 28 MMOL/L (20-31); CHLORIDE LEVEL 108 MMOL/L (98-107); CHOLESTEROL LEVEL 159 MG/DL (<200); CHOLESTEROL RISK RATIO 4.74 (<5); CREATININE FOR GFR 0.68 MG/DL (0.55-1.30); FREE T4 0.94 NG/DL (0.89-1.76); GLOMERULAR FILTRATION RATE > 60.0 (>58); GLUCOSE, FASTING 86 MG/DL (60-100); HDL CHOLESTEROL 33.5 MG/DL (>40); IRON (FE) 20 UG/DL (50-170); LDL CHOLESTEROL 81.5 MG/DL (<100); NON-HDL-C 125.5 MG/DL; PERCENT SATURATION 4.6 % (13.2-45.0); POTASSIUM SERUM 3.8 MMOL/L (3.5-5.1); SODIUM LEVEL 138 MMOL/L (136-145); TOTAL IRON BINDING CAPACITY 433 UG/DL (250-425); TOTAL PROTEIN 6.3 G/DL (5.7-8.2); TRIGLYCERIDES LEVEL 220 MG/DL (<150)
[2024-05-13 15:34] LABS: TOTAL 25(OH) VITAMIN D 8.8 NG/ML (20.0-100.0); VITAMIN B12 LEVEL 258 PG/ML (211-911)
[2024-05-13 15:38] LABS: HEMOGLOBIN A1c 4.8 % (4.0-6.0)
== END ==
LOC: M LAB 14:29
PROVIDERS: ATTEND Physician Assistant
DX: D50.9 Iron deficiency anemia, unspecified (principal); F41.9 Anxiety disorder, unspecified; K59.00 Constipation, unspecified

== ENCOUNTER 2024-05-14 22:32 | Emergency (ER) | payer OTHER ==
[~2024-05-14] VITALS: Ht 162.6 cm; Wt 60.4 kg
[~2024-05-14 22:32] MED LIST changes: -SERT25TA21
[2024-05-14 22:40] VITALS: TEMP 97.9
[2024-05-14] MEDS ORDERED: SERT25TA21 (22:47)
[2024-05-15] MEDS: MECLIZINE 25 MG TABLET PO ONE (02:07)
[2024-05-15] MEDS: NS 1,000 ML IV ONE (02:13)
[2024-05-15 02:21] LABS: HEMATOCRIT 31.9 % (36.0-47.0); HEMOGLOBIN 9.5 g/dl (12.0-15.5); MEAN CORPUSCULAR HEMOGLOBIN 21.5 pg (27.0-33.0); MEAN CORPUSCULAR HGB CONC 29.8 g/dl (32.0-36.5); MEAN CORPUSCULAR VOLUME 72.2 fl (80.0-96.0); PLATELET COUNT, AUTOMATED 227 10^3/uL (150-450); RED BLOOD COUNT 4.42 10^6/uL (4.00-5.40); WHITE BLOOD COUNT 4.9 10^3/uL (4.0-10.0)
[2024-05-15 02:51] LABS: ALBUMIN 3.9 G/DL (3.2-5.2); ALKALINE PHOSPHATASE 80 U/L (46-116); ALT/SGPT 11 U/L (7.0-40); AST/SGOT < 8 U/L (<34); BILIRUBIN,TOTAL 0.3 MG/DL (0.3-1.2); BLOOD UREA NITROGEN 7 MG/DL (9-23); CALCIUM LEVEL 9.3 MG/DL (8.5-10.1); CARBON DIOXIDE LEVEL 26 MMOL/L (20-31); CHLORIDE LEVEL 109 MMOL/L (98-107); CK-MB VALUE MASS < 1.0 NG/ML (<3.6); CPK CREATINE PHOSPHOKINASE 38 U/L (34-145); CREATININE FOR GFR 0.63 MG/DL (0.55-1.30); GLOMERULAR FILTRATION RATE > 60.0 (>58); GLUCOSE, FASTING 98 MG/DL (60-100); MB/CK RELATIVE INDEX 2.63 (< OR =4); POTASSIUM SERUM 4.3 MMOL/L (3.5-5.1); SODIUM LEVEL 139 MMOL/L (136-145); TOTAL PROTEIN 6.5 G/DL (5.7-8.2)
[2024-05-15 04:00] VITALS: BP 109/55
[2024-05-15 04:17] VITALS: O2SAT 98
[2024-05-15 05:04] LABS: APPEARANCE, URINE HAZY (CLEAR); BACTERIA, URINE AUTO NEGATIVE (NEGATIVE); BILIRUBIN, URINE AUTO NEGATIVE (NEGATIVE); BLOOD, URINE BLOOD 3+ (NEGATIVE); COLOR, URINE RED (YELLOW); GLUCOSE, URINE (UA) AUTO NEGATIVE (NEGATIVE); KETONE, URINE AUTO NEGATIVE (NEGATIVE); LEUKOCYTE ESTERASE, URINE AUTO NEGATIVE (NEGATIVE); MUCUS, URINE SMALL (NEGATIVE); NITRITE, URINE AUTO NEGATIVE (NEGATIVE); PROTEIN, URINE AUTO 2+ mg/dL (NEGATIVE); RBC, URINE AUTO TNTC /HPF (0-3); SPECIFIC GRAVITY URINE AUTO 1.005 (1.002-1.035); SQUAMOUS EPITHELIAL CELL UR AU 4 /HPF (0-6); UROBILINOGEN, URINE AUTO 0.2 mg/dL (0.0-2.0); WBC, URINE AUTO 0 /HPF (0-3)
[2024-05-15] MEDS ORDERED: MECL-209 PO (05:27)
== END 2024-05-15 05:37 | disposition home or self-care (01) ==
LOC: M ED 22:32
DX: E86.0 Dehydration (principal); H81.4 Vertigo of central origin; Z91.030 Bee allergy status; Z79.899 Other long term (current) drug therapy

== ENCOUNTER 2024-09-13 01:17 | Inpatient (IN) | payer MEDICAID, OTHER ==
[~2024-09-13] VITALS: Ht 162.6 cm; Wt 60.0 kg
[~2024-09-13 01:17] MED LIST changes: -CYCL5TAB PO; +CYCL5TAB4 PO; +MECL-209 PO; +SERT25TA21
[2024-09-13 03:19] LABS: HEMOGLOBIN 10.1 g/dl (12.0-15.5); MEAN CORPUSCULAR HEMOGLOBIN 21.3 pg (27.0-33.0); MEAN CORPUSCULAR HGB CONC 29.7 g/dl (32.0-36.5); MEAN CORPUSCULAR VOLUME 71.7 fl (80.0-96.0); PLATELET COUNT, AUTOMATED 208 10^3/uL (150-450); RED BLOOD COUNT 4.74 10^6/uL (4.00-5.40); WHITE BLOOD COUNT 7.2 10^3/uL (4.0-10.0)
[2024-09-13 03:38] LABS: AMPHETAMINES LEVEL URINE NEGATIVE (NEGATIVE); BARBITURATES URINE NEGATIVE (NEGATIVE); BENZODIAZEPINES URINE NEGATIVE (NEGATIVE)
[2024-09-13 03:39] LABS: CANNABINOIDS URINE NEGATIVE (NEGATIVE); COCAINE METABOLITE URINE NEGATIVE (NEGATIVE); METHADONE URINE NEGATIVE (NEGATIVE); OPIATES URINE NEGATIVE (NEGATIVE); PHENCYCLIDINE URINE NEGATIVE (NEGATIVE)
[2024-09-13 03:52] LABS: ETHYL ALCOHOL (ETHANOL) 0.007 % (0.000-0.010)
[2024-09-13 03:53] LABS: SALICYLATE LEVEL < 3.0 MG/DL (<30)
[2024-09-13 03:54] LABS: ALBUMIN 4.2 G/DL (3.2-5.2); ALKALINE PHOSPHATASE 74 U/L (35-104); ALT/SGPT < 9 U/L (7.0-40); AST/SGOT < 8 U/L (<34); BILIRUBIN,DIRECT 0.1 MG/DL (<0.4); BILIRUBIN,TOTAL 0.4 MG/DL (0.3-1.2); BLOOD UREA NITROGEN 7 MG/DL (9-23); CALCIUM LEVEL 10.2 MG/DL (8.5-10.1); CARBON DIOXIDE LEVEL 23 MMOL/L (20-31); CHLORIDE LEVEL 106 MMOL/L (98-107); CREATININE FOR GFR 0.69 MG/DL (0.55-1.30); GLOMERULAR FILTRATION RATE > 60.0 (>58); GLUCOSE, FASTING 98 MG/DL (60-100); POTASSIUM SERUM 3.8 MMOL/L (3.5-5.1); SODIUM LEVEL 138 MMOL/L (136-145); TOTAL PROTEIN 7.3 G/DL (5.7-8.2)
[2024-09-13 03:56] LABS: THYROID STIMULATING HORMONE 1.452 uIU/ML (0.55-4.78)
[2024-09-13 04:10] LABS: HCG, SERUM QUALITATIVE NEGATIVE (NEGATIVE)
[2024-09-13] MEDS ORDERED: VENTAER INH (09:51)
[2024-09-13] MEDS ORDERED: HOME MED LIST COMPLETE! XX SCH (09:55)
[2024-09-13] MEDS ORDERED: NICOTINE 21MG/24HR 1 EA TRANSDERMAL TD PRN (11:35)
[2024-09-13] MEDS ORDERED: MOM 30ML SUSPENSION UDC PO PRN (11:35)
[2024-09-13] MEDS ORDERED: IBUPROFEN 400MG TAB PO PRN (11:35)
[2024-09-13] MEDS ORDERED: ACETAMINOPHEN 325 MG TAB PO PRN (11:35)
[2024-09-13] MEDS ORDERED: MAALOX 30 ML SUSP *UDC PO PRN (11:35)
[2024-09-13] MEDS ORDERED: traZODone 50 MG TAB PO PRN (11:35)
[2024-09-13 12:55] VITALS: BP 140/73; TEMP 98.3; O2SAT 100
[2024-09-13 15:21] VITALS: BP 148/80; TEMP 98.8; O2SAT 100
[2024-09-13] MEDS: diphenhydrAMINE 25MG CAP PO PRN (17:57)
[2024-09-13] MEDS ORDERED: ALBUTEROL 90 MCG/ACT 8GM HFA INHALER INH PRN (18:35)
[2024-09-13] MEDS: SERTRALINE HCL 25 MG TABLET PO SCH (20:43)
[2024-09-14] MEDS ORDERED: SERT25TA21 PO (05:17)
[2024-09-14 06:23] VITALS: BP 119/58; TEMP 97; O2SAT 98
[2024-09-14] MEDS ORDERED: SERT25TA85 PO (09:18)
[2024-09-14] MEDS: FLUZONE VACCINE TRIVALENT PF(2024-25) 0.5ML SYRINGE IM.IMMUN ONE (13:36)
== END 2024-09-14 14:13 | disposition home or self-care (01) | DRG 754 ==
LOC: M ED 01:17 → EDBD 01:17 → M ED INP 11:32 → M PSY 12:52
PROVIDERS: ADMIT Psychiatry & Neurology Psychiatry; ATTEND Psychiatry & Neurology Psychiatry
DX: F32.A Depression, unspecified (principal); F41.9 Anxiety disorder, unspecified; F43.10 Post-traumatic stress disorder, unspecified; J45.909 Unspecified asthma, uncomplicated; Z83.3 Family history of diabetes mellitus; Z81.1 Family history of alcohol abuse and dependence; Z81.8 Family history of other mental and behavioral disorders; Z56.0 Unemployment, unspecified; Z79.899 Other long term (current) drug therapy; Z91.030 Bee allergy status

== ENCOUNTER 2024-10-24 01:06 | Emergency (ER) | payer MEDICAID, OTHER ==
[~2024-10-24] VITALS: Ht 162.6 cm; Wt 60.0 kg
[~2024-10-24 01:06] MED LIST changes: +SERT25TA21 PO; +VENTAER INH
[2024-10-24 01:12] VITALS: TEMP 97.6
[2024-10-24] MEDS ORDERED: ONDA-282 PO (01:18)
[2024-10-24 02:05] LABS: BASO % 0.7 % (0.0-1.0); HEMATOCRIT 29.9 % (36.0-47.0); HEMOGLOBIN 8.9 g/dl (12.0-15.5); LYMPH # 1.3 10^3/uL (1.5-5.0); LYMPH % 31.2 % (24.0-44.0); MEAN CORPUSCULAR HEMOGLOBIN 20.9 pg (27.0-33.0); MEAN CORPUSCULAR HGB CONC 29.8 g/dl (32.0-36.5); MEAN CORPUSCULAR VOLUME 70.2 fl (80.0-96.0); MONO # 0.4 10^3/uL (0.0-0.8); NEUTROPHILS # 2.3 10^3/uL (1.5-8.5); NEUTROPHILS % 56.9 % (36.0-66.0); PLATELET COUNT, AUTOMATED 169 10^3/uL (150-450); RED BLOOD COUNT 4.26 10^6/uL (4.00-5.40); WHITE BLOOD COUNT 4.1 10^3/uL (4.0-10.0)
[2024-10-24 02:16] LABS: BLOOD UREA NITROGEN 6 MG/DL (9-23); CALCIUM LEVEL 9.3 MG/DL (8.5-10.1); CARBON DIOXIDE LEVEL 23 MMOL/L (20-31); CHLORIDE LEVEL 107 MMOL/L (98-107); CREATININE FOR GFR 0.56 MG/DL (0.55-1.30); GLOMERULAR FILTRATION RATE > 60.0 (>58); GLUCOSE, FASTING 106 MG/DL (60-100); MAGNESIUM LEVEL 2.1 MG/DL (1.8-2.4); POTASSIUM SERUM 4.3 MMOL/L (3.5-5.1); SODIUM LEVEL 139 MMOL/L (136-145)
[2024-10-24 02:29] LABS: HEMOGLOBIN A1c 5.1 % (4.0-6.0)
[2024-10-24 03:00] VITALS: BP 132/66; O2SAT 100
== END 2024-10-24 03:07 | disposition home or self-care (01) ==
LOC: M ED 01:06 → EDBD 01:06 → M ED 03:07
DX: R53.83 Other fatigue (principal); J01.90 Acute sinusitis, unspecified; G43.909 Migraine, unspecified, not intractable, without status migrainosus; J45.909 Unspecified asthma, uncomplicated; E03.9 Hypothyroidism, unspecified; F17.200 Nicotine dependence, unspecified, uncomplicated; Z79.52 Long term (current) use of systemic steroids; Z79.83 Long term (current) use of bisphosphonates; Z79.899 Other long term (current) drug therapy; Z91.030 Bee allergy status

== ENCOUNTER 2024-12-11 23:55 | Emergency (ER) | payer OTHER ==
[~2024-12-11] VITALS: Ht 162.6 cm; Wt 59.6 kg
[2024-12-12 00:12] VITALS: BP 164/75; TEMP 95.8; O2SAT 99
== END 2024-12-12 03:48 | disposition left against medical advice (07) ==
LOC: M ED 23:55
DX: Z53.21 Procedure and treatment not carried out due to patient leaving prior to being seen by health care provider (principal)

== ENCOUNTER 2025-02-22 01:05 | Emergency (ER) | payer OTHER ==
[~2025-02-22] VITALS: Ht 162.6 cm; Wt 60.2 kg
[2025-02-22 01:08] VITALS: BP 150/80; TEMP 97.6; O2SAT 100
== END 2025-02-22 03:25 | disposition left against medical advice (07) ==
LOC: EDBD 01:05 → M ED 01:05
DX: Z53.21 Procedure and treatment not carried out due to patient leaving prior to being seen by health care provider (principal)

== ENCOUNTER 2025-02-24 19:48 | Emergency (ER) | payer OTHER ==
[~2025-02-24] VITALS: Ht 162.6 cm; Wt 59.2 kg
[2025-02-24] MEDS: ONDANSETRON 4MG 2ML VIAL IV ONE (23:05)
[2025-02-25 00:03] LABS: TOTAL IRON BINDING CAPACITY 423 UG/DL (250-425)
[2025-02-25 00:04] LABS: ALBUMIN 4.2 G/DL (3.2-5.2); ALKALINE PHOSPHATASE 86 U/L (35-104); ALT/SGPT 16 U/L (7.0-40); AST/SGOT 10 U/L (<34); BILIRUBIN,TOTAL 0.3 MG/DL (0.3-1.2); BLOOD UREA NITROGEN 11 MG/DL (9-23); CALCIUM LEVEL 9.1 MG/DL (8.5-10.1); CARBON DIOXIDE LEVEL 24 MMOL/L (20-31); CHLORIDE LEVEL 107 MMOL/L (98-107); CREATININE FOR GFR 0.54 MG/DL (0.55-1.30); GLOMERULAR FILTRATION RATE > 90.0 (>58); GLUCOSE, FASTING 93 MG/DL (60-100); IRON (FE) 13 UG/DL (50-170); PERCENT SATURATION 3.1 % (13.2-45.0); POTASSIUM SERUM 4.2 MMOL/L (3.5-5.1); SODIUM LEVEL 139 MMOL/L (136-145); TOTAL PROTEIN 7.2 G/DL (5.7-8.2)
[2025-02-25 00:05] LABS: FERRITIN < 0.9 NG/ML (7.3-270.7); FOLATE 13.76 NG/ML (>5.4)
[2025-02-25 00:06] LABS: VITAMIN B12 LEVEL 405 PG/ML (211-911)
[2025-02-25 00:14] LABS: BASO # 0.1 10^3/uL (0.0-0.2); EOS % 0.2 % (0.0-3.0); HEMATOCRIT 31.7 % (36.0-47.0); HEMOGLOBIN 9.3 g/dl (12.0-15.5); LYMPH # 1.3 10^3/uL (1.5-5.0); LYMPH % 24.1 % (24.0-44.0); MEAN CORPUSCULAR HEMOGLOBIN 20.3 pg (27.0-33.0); MEAN CORPUSCULAR HGB CONC 29.3 g/dl (32.0-36.5); MEAN CORPUSCULAR VOLUME 69.1 fl (80.0-96.0); MONO # 0.3 10^3/uL (0.0-0.8); MONO % 6.5 % (2.0-8.0); NEUTROPHILS # 3.6 10^3/uL (1.5-8.5); PLATELET COUNT, AUTOMATED 238 10^3/uL (150-450); RED BLOOD COUNT 4.59 10^6/uL (4.00-5.40); WHITE BLOOD COUNT 5.2 10^3/uL (4.0-10.0)
[2025-02-25] MEDS ORDERED: ONDA-282 PO (00:23)
[2025-02-25] MEDS ORDERED: FERR300L12 PO (00:23)
[2025-02-25 00:35] VITALS: BP 132/82; TEMP 97.9; O2SAT 100
[2025-02-25] MEDS ORDERED: ECOT81TA5 PO (23:55)
[2025-02-25] MEDS ORDERED: HYDR-3363 PO (23:55)
== END 2025-02-25 00:40 | disposition home or self-care (01) ==
LOC: M ED 19:48
DX: D50.9 Iron deficiency anemia, unspecified (principal); F41.9 Anxiety disorder, unspecified; J45.909 Unspecified asthma, uncomplicated; F17.200 Nicotine dependence, unspecified, uncomplicated; Z91.030 Bee allergy status; Z79.82 Long term (current) use of aspirin; Z79.52 Long term (current) use of systemic steroids; Z79.83 Long term (current) use of bisphosphonates; Z79.899 Other long term (current) drug therapy
CPT/HCPCS: 80053; 82607; 82728; 82746; 83550; 85025; 96374; 99284; J2405

== ENCOUNTER 2025-02-25 05:13 | Emergency (ER) | payer OTHER ==
[~2025-02-25] VITALS: Ht 175.3 cm; Wt 59.2 kg
[~2025-02-25 05:13] MED LIST changes: +FERR300L12 PO
[2025-02-25 07:27] LABS: BASO % 0.6 % (0.0-1.0); EOS % 0.6 % (0.0-3.0); HEMATOCRIT 28.1 % (36.0-47.0); HEMOGLOBIN 8.2 g/dl (12.0-15.5); LYMPH % 20.9 % (24.0-44.0); MEAN CORPUSCULAR HEMOGLOBIN 20.1 pg (27.0-33.0); MEAN CORPUSCULAR HGB CONC 29.2 g/dl (32.0-36.5); MONO # 0.4 10^3/uL (0.0-0.8); MONO % 8.3 % (2.0-8.0); NEUTROPHILS # 3.4 10^3/uL (1.5-8.5); NEUTROPHILS % 69.4 % (36.0-66.0); PLATELET COUNT, AUTOMATED 208 10^3/uL (150-450); RED BLOOD COUNT 4.07 10^6/uL (4.00-5.40); WHITE BLOOD COUNT 4.9 10^3/uL (4.0-10.0)
[2025-02-25 07:36] LABS: INR 1.07; PROTHROMBIN TIME 14.2 SECONDS (12.5-14.5)
[2025-02-25 07:41] LABS: LIPASE 29 U/L (12-53)
[2025-02-25 07:43] LABS: CPK CREATINE PHOSPHOKINASE 38 U/L (34-145)
[2025-02-25 07:47] LABS: HCG, SERUM QUALITATIVE NEGATIVE (NEGATIVE)
[2025-02-25 07:55] LABS: ALBUMIN 3.7 G/DL (3.2-5.2); ALKALINE PHOSPHATASE 77 U/L (35-104); ALT/SGPT 12 U/L (7.0-40); AST/SGOT 8 U/L (<34); BILIRUBIN,DIRECT 0.1 MG/DL (<0.4); BILIRUBIN,TOTAL 0.4 MG/DL (0.3-1.2); BLOOD UREA NITROGEN 11 MG/DL (9-23); CALCIUM LEVEL 8.8 MG/DL (8.5-10.1); CARBON DIOXIDE LEVEL 23 MMOL/L (20-31); CHLORIDE LEVEL 111 MMOL/L (98-107); CK-MB VALUE MASS < 1.0 NG/ML (<3.6); CREATININE FOR GFR 0.57 MG/DL (0.55-1.30); FREE T4 1.23 NG/DL (0.89-1.76); GLOMERULAR FILTRATION RATE > 90.0 (>58); GLUCOSE, FASTING 96 MG/DL (60-100); MB/CK RELATIVE INDEX 2.63 (< OR =4); POTASSIUM SERUM 3.4 MMOL/L (3.5-5.1); SODIUM LEVEL 142 MMOL/L (136-145); THYROID STIMULATING HORMONE 0.853 uIU/ML (0.55-4.78); TOTAL PROTEIN 6.3 G/DL (5.7-8.2)
[2025-02-25 08:56] LABS: CPK CREATINE PHOSPHOKINASE 44 U/L (34-145)
[2025-02-25 08:58] LABS: CK-MB VALUE MASS < 1.0 NG/ML (<3.6); MB/CK RELATIVE INDEX 2.27 (< OR =4)
[2025-02-25 09:15] VITALS: BP 118/57; TEMP 97.8; O2SAT 98
[2025-02-25] MEDS ORDERED: HYDR-3363 PO (23:55)
[2025-02-25] MEDS ORDERED: ECOT81TA5 PO (23:55)
== END 2025-02-25 09:27 | disposition home or self-care (01) ==
LOC: M ED 05:13
DX: R07.9 Chest pain, unspecified (principal); F41.9 Anxiety disorder, unspecified; F32.A Depression, unspecified; G43.909 Migraine, unspecified, not intractable, without status migrainosus; E03.9 Hypothyroidism, unspecified; D50.9 Iron deficiency anemia, unspecified; F17.200 Nicotine dependence, unspecified, uncomplicated; Z91.030 Bee allergy status; Z79.82 Long term (current) use of aspirin; Z79.52 Long term (current) use of systemic steroids; Z79.83 Long term (current) use of bisphosphonates; Z79.899 Other long term (current) drug therapy

== ENCOUNTER 2025-02-25 19:32 | Emergency (ER) | payer OTHER ==
[~2025-02-25] VITALS: Ht 162.6 cm; Wt 58.4 kg
[2025-02-25 22:00] LABS: EOS % 0.2 % (0.0-3.0); HEMATOCRIT 28.7 % (36.0-47.0); HEMOGLOBIN 8.6 g/dl (12.0-15.5); LYMPH # 1.1 10^3/uL (1.5-5.0); LYMPH % 26.7 % (24.0-44.0); MEAN CORPUSCULAR HEMOGLOBIN 20.8 pg (27.0-33.0); MEAN CORPUSCULAR VOLUME 69.3 fl (80.0-96.0); MONO # 0.4 10^3/uL (0.0-0.8); MONO % 10.9 % (2.0-8.0); NEUTROPHILS # 2.5 10^3/uL (1.5-8.5); PLATELET COUNT, AUTOMATED 226 10^3/uL (150-450); RED BLOOD COUNT 4.14 10^6/uL (4.00-5.40); WHITE BLOOD COUNT 4.1 10^3/uL (4.0-10.0)
[2025-02-25] MEDS: NS 500 ML IV ONE (22:02)
[2025-02-25] MEDS: ONDANSETRON 4MG 2ML VIAL IV ONE (22:02)
[2025-02-25 22:20] LABS: INR 1.07; PARTIAL THROMBOPLASTIN TIME 28.7 SECONDS (24.8-34.2); PROTHROMBIN TIME 14.2 SECONDS (12.5-14.5)
[2025-02-25 22:31] LABS: BLOOD UREA NITROGEN 10 MG/DL (9-23); CALCIUM LEVEL 8.6 MG/DL (8.5-10.1); CARBON DIOXIDE LEVEL 24 MMOL/L (20-31); CHLORIDE LEVEL 108 MMOL/L (98-107); CPK CREATINE PHOSPHOKINASE 38 U/L (34-145); CREATININE FOR GFR 0.62 MG/DL (0.55-1.30); GLOMERULAR FILTRATION RATE > 90.0 (>58); GLUCOSE, FASTING 87 MG/DL (60-100); POTASSIUM SERUM 3.5 MMOL/L (3.5-5.1); SODIUM LEVEL 141 MMOL/L (136-145)
[2025-02-25 22:32] LABS: CK-MB VALUE MASS < 1.0 NG/ML (<3.6); MB/CK RELATIVE INDEX 2.63 (< OR =4)
[2025-02-25] MEDS: hydrOXYzine 50 MG TAB PO ONE (23:20)
[2025-02-25 23:45] VITALS: BP 114/61
[2025-02-25] MEDS ORDERED: ECOT81TA5 PO (23:55)
[2025-02-25] MEDS ORDERED: HYDR-3363 PO (23:55)
[2025-02-26] VITALS: O2SAT 100
[2025-02-26 00:15] VITALS: TEMP 97.4
[2025-02-26] MEDS: ASPIRIN 81MG CHEW TABLET PO ONE (00:20)
== END 2025-02-26 00:27 | disposition home or self-care (01) ==
LOC: M ED 19:32
DX: G45.9 Transient cerebral ischemic attack, unspecified (principal); F41.9 Anxiety disorder, unspecified; F32.A Depression, unspecified; I44.4 Left anterior fascicular block; E03.9 Hypothyroidism, unspecified; J45.909 Unspecified asthma, uncomplicated; M54.50 Low back pain, unspecified; F17.200 Nicotine dependence, unspecified, uncomplicated; Z91.030 Bee allergy status; Z79.52 Long term (current) use of systemic steroids; Z79.82 Long term (current) use of aspirin; Z79.83 Long term (current) use of bisphosphonates; Z79.899 Other long term (current) drug therapy
CPT/HCPCS: 70450; 71046; 80047; 80048; 82550; 82553; 84484; 84702; 85025; 85610; 85730; 93005; 93041; 94760; 96361; 96374; 99285; J2405

== ENCOUNTER 2025-03-02 15:54 | Emergency (ER) | payer OTHER ==
[~2025-03-02] VITALS: Ht 162.6 cm; Wt 56.8 kg
[2025-03-02] MEDS: FERROUS SULFATE 300MG/5ML UDC LIQUID PO SCH (09:00)
[~2025-03-02 15:54] MED LIST changes: +ECOT81TA5 PO; +HYDR-3363 PO
[2025-03-02 15:56] VITALS: O2SAT 98
[2025-03-02 16:23] VITALS: BP 132/74
[2025-03-02 17:58] LABS: BASO % 0.8 % (0.0-1.0); EOS % 0.3 % (0.0-3.0); HEMATOCRIT 31.5 % (36.0-47.0); HEMOGLOBIN 9.3 g/dl (12.0-15.5); LYMPH # 0.9 10^3/uL (1.5-5.0); LYMPH % 22.4 % (24.0-44.0); MEAN CORPUSCULAR HEMOGLOBIN 20.3 pg (27.0-33.0); MEAN CORPUSCULAR HGB CONC 29.5 g/dl (32.0-36.5); MEAN CORPUSCULAR VOLUME 68.6 fl (80.0-96.0); MONO # 0.3 10^3/uL (0.0-0.8); MONO % 8.1 % (2.0-8.0); NEUTROPHILS # 2.6 10^3/uL (1.5-8.5); NEUTROPHILS % 68.4 % (36.0-66.0); PLATELET COUNT, AUTOMATED 222 10^3/uL (150-450); RED BLOOD COUNT 4.59 10^6/uL (4.00-5.40); WHITE BLOOD COUNT 3.8 10^3/uL (4.0-10.0)
[2025-03-02 18:22] LABS: BLOOD UREA NITROGEN 8 MG/DL (9-23); CALCIUM LEVEL 8.8 MG/DL (8.5-10.1); CARBON DIOXIDE LEVEL 23 MMOL/L (20-31); CHLORIDE LEVEL 108 MMOL/L (98-107); CREATININE FOR GFR 0.49 MG/DL (0.55-1.30); GLOMERULAR FILTRATION RATE > 90.0 (>58); GLUCOSE, FASTING 97 MG/DL (60-100); IRON (FE) 12 UG/DL (50-170); PERCENT SATURATION 2.9 % (13.2-45.0); POTASSIUM SERUM 3.9 MMOL/L (3.5-5.1); SODIUM LEVEL 139 MMOL/L (136-145); TOTAL IRON BINDING CAPACITY 409 UG/DL (250-425)
[2025-03-02 18:24] LABS: FERRITIN 2.3 NG/ML (7.3-270.7)
[2025-03-02 18:25] VITALS: TEMP 97
[2025-03-02] MEDS: METOCLOPRAMIDE INJ 10MG/2ML VIAL IV ONE (18:49)
[2025-03-03] MEDS ORDERED: FERROUS SULFATE 300MG/5ML UDC LIQUID PO SCH (09:00)
== END 2025-03-02 20:44 | disposition home or self-care (01) ==
LOC: M ED 15:54
DX: D50.9 Iron deficiency anemia, unspecified (principal); F41.9 Anxiety disorder, unspecified; J45.909 Unspecified asthma, uncomplicated; F32.A Depression, unspecified; Z79.52 Long term (current) use of systemic steroids; Z79.82 Long term (current) use of aspirin; Z79.83 Long term (current) use of bisphosphonates; Z79.899 Other long term (current) drug therapy; Z91.030 Bee allergy status
CPT/HCPCS: 80048; 82728; 83550; 85025; 96374; 99284; J2765

== ENCOUNTER 2025-03-04 12:45 | Emergency (ER) | payer OTHER ==
[~2025-03-04] VITALS: Ht 162.6 cm; Wt 55.9 kg
[2025-03-04 14:09] LABS: BASO % 0.7 % (0.0-1.0); EOS % 0.3 % (0.0-3.0); HEMATOCRIT 34.6 % (36.0-47.0); HEMOGLOBIN 10.2 g/dl (12.0-15.5); LYMPH # 0.8 10^3/uL (1.5-5.0); MEAN CORPUSCULAR HEMOGLOBIN 20.1 pg (27.0-33.0); MEAN CORPUSCULAR HGB CONC 29.5 g/dl (32.0-36.5); MEAN CORPUSCULAR VOLUME 68.2 fl (80.0-96.0); MONO # 0.3 10^3/uL (0.0-0.8); MONO % 9.5 % (2.0-8.0); NEUTROPHILS # 1.9 10^3/uL (1.5-8.5); NEUTROPHILS % 62.2 % (36.0-66.0); PLATELET COUNT, AUTOMATED 238 10^3/uL (150-450); RED BLOOD COUNT 5.07 10^6/uL (4.00-5.40)
[2025-03-04 14:32] LABS: CK-MB VALUE MASS < 1.0 NG/ML (<3.6)
[2025-03-04 14:34] LABS: IRON (FE) 216 UG/DL (50-170)
[2025-03-04 14:35] LABS: CPK CREATINE PHOSPHOKINASE 21 U/L (34-145); MB/CK RELATIVE INDEX 4.76 (< OR =4); THYROID STIMULATING HORMONE 0.489 uIU/ML (0.55-4.78)
[2025-03-04 14:36] LABS: FREE T4 1.33 NG/DL (0.89-1.76)
[2025-03-04 14:40] LABS: ALBUMIN 4.2 G/DL (3.2-5.2); ALKALINE PHOSPHATASE 76 U/L (35-104); ALT/SGPT 10 U/L (7.0-40); AST/SGOT 8 U/L (<34); BILIRUBIN,TOTAL 0.4 MG/DL (0.3-1.2); BLOOD UREA NITROGEN 12 MG/DL (9-23); CALCIUM LEVEL 9.9 MG/DL (8.5-10.1); CARBON DIOXIDE LEVEL 22 MMOL/L (20-31); CHLORIDE LEVEL 105 MMOL/L (98-107); CREATININE FOR GFR 0.55 MG/DL (0.55-1.30); GLOMERULAR FILTRATION RATE > 90.0 (>58); GLUCOSE, FASTING 99 MG/DL (60-100); MAGNESIUM LEVEL 1.9 MG/DL (1.8-2.4); POTASSIUM SERUM 3.6 MMOL/L (3.5-5.1); SODIUM LEVEL 139 MMOL/L (136-145); TOTAL PROTEIN 7.2 G/DL (5.7-8.2)
[2025-03-04] MEDS: NS (Normal Saline) 0.9% 1,000 ML IV ONE (15:08)
[2025-03-04 15:10] LABS: FERRITIN 4.8 NG/ML (7.3-270.7)
[2025-03-04 15:44] LABS: CK-MB VALUE MASS < 1.0 NG/ML (<3.6)
[2025-03-04 15:45] LABS: CPK CREATINE PHOSPHOKINASE 18 U/L (34-145); MB/CK RELATIVE INDEX 5.55 (< OR =4)
[2025-03-04 16:45] VITALS: BP 113/56; O2SAT 99
[2025-03-04 17:00] VITALS: TEMP 96.7
[2025-03-05] MEDS ORDERED: ZOLO25TA PO (10:57)
== END 2025-03-04 17:04 | disposition home or self-care (01) ==
LOC: M ED 12:45
DX: R55 Syncope and collapse (principal); J45.909 Unspecified asthma, uncomplicated; F43.10 Post-traumatic stress disorder, unspecified; G40.909 Epilepsy, unspecified, not intractable, without status epilepticus; F41.9 Anxiety disorder, unspecified; F17.200 Nicotine dependence, unspecified, uncomplicated; Z91.030 Bee allergy status; Z79.52 Long term (current) use of systemic steroids; Z79.899 Other long term (current) drug therapy

== ENCOUNTER 2025-03-05 09:18 | Observation (INO) | payer OTHER ==
[~2025-03-05] VITALS: Ht 162.6 cm; Wt 52.4 kg
[2025-03-05] MEDS ORDERED: ISOVUE-370 76% 100ML VIAL As Ordered ONE (09:29)
[2025-03-05 09:42] LABS: BASO % 0.7 % (0.0-1.0); EOS % 0.5 % (0.0-3.0); HEMATOCRIT 29.6 % (36.0-47.0); HEMOGLOBIN 8.9 g/dl (12.0-15.5); LYMPH # 1.2 10^3/uL (1.5-5.0); LYMPH % 29.1 % (24.0-44.0); MEAN CORPUSCULAR HEMOGLOBIN 20.6 pg (27.0-33.0); MEAN CORPUSCULAR HGB CONC 30.1 g/dl (32.0-36.5); MEAN CORPUSCULAR VOLUME 68.4 fl (80.0-96.0); MONO # 0.4 10^3/uL (0.0-0.8); MONO % 10.9 % (2.0-8.0); NEUTROPHILS # 2.3 10^3/uL (1.5-8.5); NEUTROPHILS % 58.3 % (36.0-66.0); PLATELET COUNT, AUTOMATED 210 10^3/uL (150-450); RED BLOOD COUNT 4.33 10^6/uL (4.00-5.40)
[2025-03-05 09:58] LABS: INR 1.03; PARTIAL THROMBOPLASTIN TIME 26.7 SECONDS (24.8-34.2); PROTHROMBIN TIME 13.8 SECONDS (12.5-14.5)
[2025-03-05 10:02] LABS: BLOOD UREA NITROGEN 8 MG/DL (9-23); CALCIUM LEVEL 8.9 MG/DL (8.5-10.1); CARBON DIOXIDE LEVEL 22 MMOL/L (20-31); CHLORIDE LEVEL 107 MMOL/L (98-107); CREATININE FOR GFR 0.55 MG/DL (0.55-1.30); GLOMERULAR FILTRATION RATE > 90.0 (>58); GLUCOSE, FASTING 96 MG/DL (60-100); SODIUM LEVEL 139 MMOL/L (136-145)
[2025-03-05] MEDS: POTASSIUM CHLORIDE 10MEQ SR TABLET PO ONE (10:16)
[2025-03-05 10:34] LABS: CHOLESTEROL LEVEL 153 MG/DL (<200); CHOLESTEROL RISK RATIO 3.69 (<5); HDL CHOLESTEROL 41.4 MG/DL (>40); MAGNESIUM LEVEL 1.8 MG/DL (1.8-2.4); NON-HDL-C 111.6 MG/DL; TRIGLYCERIDES LEVEL 73 MG/DL (<150)
[2025-03-05] MEDS ORDERED: ZOLO25TA PO (10:57)
[2025-03-05] MEDS ORDERED: HOME MED LIST COMPLETE! XX SCH (11:00)
[2025-03-05] MEDS ORDERED: SERTRALINE HCL 25 MG TABLET PO ONE (14:00)
[2025-03-05] MEDS: FERRIC CARBOXYMALTOSE INJ 750 MG, VIAL MATE ADAPTER 1 EACH in NS 100 ML IV ONE (15:37)
[2025-03-05 17:00] VITALS: BP 117/67; TEMP 98.1; O2SAT 100
[2025-03-05 18:57] VITALS: BP 120/66; TEMP 97.9; O2SAT 99
[2025-03-05] MEDS: SERTRALINE HCL 25 MG TABLET PO SCH (20:28)
[2025-03-05 21:51] VITALS: BP 121/65; TEMP 97.9; O2SAT 99
[2025-03-06 04:00] VITALS: BP 126/68; TEMP 97.7; O2SAT 98
[2025-03-06 12:00] VITALS: BP 109/56; TEMP 97.9; O2SAT 99
== END 2025-03-06 13:21 | disposition home or self-care (01) ==
LOC: M ED 09:18 → EDBD 09:18 → M ED INP 09:19 → M MSPAV 16:43
PROVIDERS: ADMIT Student in an Organized Health Care Education/Training Program; ATTEND Student in an Organized Health Care Education/Training Program
DX: F44.9 Dissociative and conversion disorder, unspecified (principal); F43.10 Post-traumatic stress disorder, unspecified; F41.1 Generalized anxiety disorder; D50.9 Iron deficiency anemia, unspecified; R42 Dizziness and giddiness; Z86.73 Personal history of transient ischemic attack (TIA), and cerebral infarction without residual deficits; G43.909 Migraine, unspecified, not intractable, without status migrainosus; Z79.899 Other long term (current) drug therapy
CPT/HCPCS: 70450; 70496; 70498; 70551; 71045; 80047; 80048; 80061; 83036; 83735; 85025; 85046; 85610; 85730; 86850; 86900; 86901; 87486; 87581; 87633; 87798; 93005; 93041; 93306; 94760; 96374; 99285; J1439; Q9967

== ENCOUNTER → 2025-08-06 | Outpatient (CLI) | payer OTHER ==
[~2025-08-06] MED LIST changes: -ACE65ERTAB PO; +ACET-1593 PO; +HYDR-643 PO; -IBUP-1022 PO; +IBUP600T42 PO; +ONDA-282; +ZOLO25TA PO
== END ==
LOC: M RAD 13:14
PROVIDERS: ATTEND Student in an Organized Health Care Education/Training Program
DX: R09.89 Other specified symptoms and signs involving the circulatory and respiratory systems (principal); I65.22 Occlusion and stenosis of left carotid artery

== ENCOUNTER 2025-09-13 02:59 | Emergency (ER) | payer OTHER ==
[~2025-09-13] VITALS: Ht 162.6 cm; Wt 64.4 kg
[2025-09-13 06:30] LABS: BASO # 0.0 10^3/uL (0.0-0.2); BASO % 0.7 % (0.0-1.0); EOS # 0.0 10^3/uL (0.0-0.5); EOS % 0.4 % (0.0-3.0); LYMPH # 0.9 10^3/uL (1.5-5.0); LYMPH % 15.3 % (24.0-44.0); MONO # 0.4 10^3/uL (0.0-0.8); MONO % 6.3 % (2.0-8.0); NEUTROPHILS # 4.3 10^3/uL (1.5-8.5); NEUTROPHILS % 76.9 % (36.0-66.0); PLATELET COUNT, AUTOMATED 190 10^3/uL (150-450)
[2025-09-13 06:37] LABS: CALCIUM LEVEL 9.3 MG/DL (8.5-10.1); CARBON DIOXIDE LEVEL 27 MMOL/L (20-31); CHLORIDE LEVEL 110 MMOL/L (98-107); CREATININE FOR GFR 0.59 MG/DL (0.55-1.30); GLOMERULAR FILTRATION RATE > 90.0 (>58); POTASSIUM SERUM 3.7 MMOL/L (3.5-5.1); SODIUM LEVEL 144 MMOL/L (136-145)
[2025-09-13 07:00] VITALS: TEMP 97.4
[2025-09-13 07:45] VITALS: BP 119/61; O2SAT 99
== END 2025-09-13 07:49 | disposition left against medical advice (07) ==
LOC: M ED 02:59
DX: I63.9 Cerebral infarction, unspecified (principal); J45.909 Unspecified asthma, uncomplicated; D50.9 Iron deficiency anemia, unspecified; F43.10 Post-traumatic stress disorder, unspecified; F17.200 Nicotine dependence, unspecified, uncomplicated; F10.10 Alcohol abuse, uncomplicated; I10 Essential (primary) hypertension; Z88.1 Allergy status to other antibiotic agents; Z91.030 Bee allergy status; Z79.52 Long term (current) use of systemic steroids; Z79.899 Other long term (current) drug therapy; Z53.9 Procedure and treatment not carried out, unspecified reason